=== PATIENT | female | born 1945 | race Caucasian/White ===

== ENCOUNTER → 2016-09-10 | Outpatient (CLI) | payer MEDICARE ==
--- NOTE | 2016-09-10 14:00 | BD ---
EXAMINATION TYPE: MG DEXA axial skeleton. DATE OF EXAM: 09/10/2016 COMPARISON: NONE CLINICAL HISTORY: Z78.0 POST MENOPAUSAL WITHOUT HRT Height: 64.5 Weight: 154.0 FRAX RISK QUESTIONS: Alcohol (3 or more units per day): no Family History (Parent hip fracture): no Glucocorticoids (More than 3mos): no (Ex: prednisone, prednisolone, methylprednisolone, dexamethasone, and hydrocortisone). History of Fracture in Adulthood: no Secondary Osteoporosis: 1. Type 1 Diabetes: no 2. Hyperthyroidism: no 3. Menopause before 45: no 4. Malnutrition: no 5. Chronic liver disease: no Rheumatoid Arthritis: no Current Tobacco Use: no RISK FACTORS HISTORY OF: Hip Fracture (Right/Left): no Spine Fracture: no History of Wrist Fracture: no Surgery to Spine/Hip(right/left)/Wrist (right/left): no Family History of Osteoporosis: no Active: yes Diet low in dairy products/other sources of calcium: no Postmenopausal woman: age 51 Lost more than 2 inches in height since high school: no Frequent falls: no Adrenal Insufficiency: no MEDICATIONS: Crestor, aspirin, Nexium Additional History: EXAM MEASUREMENTS: Bone mineral densitometry was performed using the [employer] System. Bone mineral density as measured about the Lumbar spine is: ----- L1-L4(G/cm2): 1.255 T Score Values are as follows: ----- L2: 0.1 ----- L3: 1.0 ----- L4: 1.3 ----- L1-L4: 0.6 Bone mineral density baseline here Bone mineral density about the R hip (g/cm2): 0.869 Bone mineral density about the L hip (g/cm2): 0.832 T Score values are as follows: -----R Neck: -1.2 -----L Neck: -1.5 -----R Total: -0.9 -----L Total: -0.8 Bone mineral density baseline here IMPRESSION: No evidence for osteoporosis or osteopenia at this time. NOTE: T-SCORE=SD OF THE YOUNG ADULT MEAN.
== END | disposition home or self-care (01) ==
LOC: RADBDWWP 12:35
PROVIDERS: ATTEND Internal Medicine
DX: Z78.0 Asymptomatic menopausal state (principal)
CPT/HCPCS: 77080

== ENCOUNTER → 2016-10-16 | Day surgery (SDC) | payer MEDICARE ==
[2016-10-13 18:05] VITALS: BMI 26.1
[~2016-10-16] MED LIST: ALPRAZolam 0.25 MG TAB PO PRN; ALPRAZolam 0.5 MG TAB PO PRN; ASPIRIN 325 MG TAB PO STA; ATORVASTATIN 80 MG TAB PO STA; IOHEXOL 350 MG/ML 125ML BOTTLE INJ ONE; ISOSORBIDE MONONITRATE ER 30 MG TAB.ER.24H PO SCH; LIDOCAINE 2% INJ 20 MG/ML SQ ONE; MIDAZOLAM 2 MG/2 ML VIAL IV ONE; MIDAZOLAM 2 MG/2 ML VIAL ONE; NITROGLYCERIN SL TABS 0.4 MG TAB SUBLINGUAL PRN; RX INFO: IV CONTRAST WAS GIVEN 1 EACH MISC MISCELLANE PRN; SODIUM CHLORIDE 0.9% 1,000 ML IV ONE; SODIUM CHLORIDE 0.9% 1,000 ML IV SCH; SODIUM CHLORIDE 0.9% 1,000 ML in EMPTY BAG 1 BAG IV ONE; fentaNYL (PF) 50 MCG/ML 2 ML AMP IV ONE; fentaNYL (PF) 50 MCG/ML 2 ML AMP ONE
[2016-10-16 07:14] VITALS: RESP 16
--- NOTE | 2016-10-16 08:42 | PCN ---
PROCEDURE PERFORMED: Cardiac cath INDICATIONS: Unstable angina. The patient has known coronary artery disease status prior angioplasty of the right coronary artery who presented to me with recurrent episodes of chest pain. Due to this, she was advised to undergo cardiac catheterization to definitely rule out ischemic heart disease. The patient received moderate conscious sedation. Total sedation time was 15 minutes. PROCEDURE NOTE: After obtaining informed consent left heart catheterization, coronary angiogram are performed via the right femoral artery using standard Celsa catheters. The patient tolerated the procedure well without any immediate complications. A femoral angiogram was performed and Angio-Seal deployed for hemostasis. FINDINGS: HEMODYNAMICS: Left ventricular end diastolic pressure is 12 to 14 mm. There is no significant gradient across the aortic valve. LEFT VENTRICULOGRAM: Left ventriculogram was not performed. ANGIOGRAPHIC DATA: LEFT MAIN CORONARY ARTERY: Left main coronary is a normal sized vessel and is free of stenosis, divides into left anterior descending coronary artery and circumflex coronary artery. CIRCUMFLEX CORONARY ARTERY: Circumflex coronary artery is a nondominant vessel and is free of significant stenosis. LEFT ANTERIOR DESCENDING CORONARY ARTERY: LAD gives off fair caliber diagonal branches which is free of significant stenosis. The LAD shows 40% atherosclerotic plaque right at the origin of the diagonal branch. RIGHT CORONARY ARTERY: Right coronary artery is a large dominant vessel and the previously stented segment within the right coronary artery appears patent. CONCLUSIONS: Patent stent within the right coronary artery. 40% stenosis involving the mid left anterior descending coronary artery right at the origin of a diagonal branch. PLAN: I reviewed angiographic data with the patient and her and advised them on continued medical therapy with aspirin, statins and I am going to add nitrates in the form of Imdur 30 mg daily. The patient's symptoms are very atypical and she does not have significant focal stenotic lesions. If necessary, down the road, if the patient has progressive symptoms we may consider a stress imaging study to see if there is ischemia in the LAD distribution. If there is, we may consider angioplasty of the LAD. CHAYITO
[2016-10-16 10:26] VITALS: PULSE 55
[2016-10-16 13:06] VITALS: TEMP 98
[2016-10-16 13:07] VITALS: BP 124/56
== END ==
LOC: CATHCVL 06:33
PROVIDERS: ATTEND Internal Medicine Cardiovascular Disease
DX: I25.110 Atherosclerotic heart disease of native coronary artery with unstable angina pectoris (principal); Z82.49 Family history of ischemic heart disease and other diseases of the circulatory system; E78.5 Hyperlipidemia, unspecified; Z79.82 Long term (current) use of aspirin; Z79.899 Other long term (current) drug therapy; Z88.5 Allergy status to narcotic agent; Z88.0 Allergy status to penicillin; Z88.8 Allergy status to other drugs, medicaments and biological substances
CPT/HCPCS: 93458; 99152; C1760; C1894; C1769; J2001; J2250; J3010; Q9967

== ENCOUNTER → 2016-11-13 | Outpatient (CLI) | payer MEDICARE ==
[2016-11-13 11:23] LABS: ALT 28 U/L (9-52); AST 26 U/L (14-36); Alkaline Phosphatase 84 U/L (38-126); Anion Gap 10 mmol/L; Blood Urea Nitrogen 17 mg/dL (7-17); Calcium 9.9 mg/dL (8.4-10.2); Carbon Dioxide 27 mmol/L (22-30); Chloride 108 mmol/L (98-107); Glucose 99 mg/dL (74-99); Non-African American GFR(MDRD) >60 (>60 ml/min/1.73 sqM); Potassium 4.9 mmol/L (3.5-5.1); Sodium 145 mmol/L (137-145); Total Bilirubin 0.3 mg/dL (0.2-1.3); Total Protein 6.9 g/dL (6.3-8.2)
--- NOTE | 2016-11-13 11:56 | CT ---
EXAMINATION TYPE: CT angio chest DATE OF EXAM: 11/13/2016 COMPARISON: NONE HISTORY: Patient complains of difficulty breathing and mid chest pain. CT DLP: 171.6 mGycm. Automated Exposure Control for Dose Reduction was Utilized. CONTRAST: CTA scan of the thorax is performed with IV Contrast, patient injected with 100 mL of Omnipaque 350, pulmonary embolism protocol. MIP Images are created on CT scanner and reviewed. FINDINGS: LUNGS: There is reticulation in the periphery of both lungs suggesting mild diffuse interstitial gloria a. Dependent atelectasis both lower lobes is present. No concerning greater than 5 mm noncalcified p arenchymal nodule or mass is identified. A few micronodules right midlung are seen measuring 3 mm or smaller in size lateral aspect best on MIP images . There is no pleural effusion or pneumothorax seen . The tracheobronchial tree is patent. MEDIASTINUM: There is suboptimal bolus with equal contrast seen in right and left heart systems and h eterogeneity present. There is no large central pulmonary embolism, smaller segmental and subsegmenta l PE is not felt present though not completely excluded by this exam. There are no greater than 1 cm hilar or mediastinal lymph nodes. No significant pericardial effusion is seen. Heart size is mildl y enlarged. There is suspected coronary stent in the proximal RCA seen best coronal image 32. OTHER: There is moderate multilevel spurring in the thoracic spine. Visualized liver is low dense sug gesting fatty infiltration. IMPRESSION: 1. Suboptimal study without convincing CT evidence for pulmonary embolism. 2. Mild cardiomegaly with suspected mild interstitial edema bilaterally, clinical and lab BNP correla tion for mild CHF exacerbation advised.
[2016-11-19 06:08] LABS: Mycoplasma IgG Antibody (EIA) 0.94 INDEX (<=0.90); Mycoplasma IgM Antibody 0.45 INDEX (<=0.90)
== END | disposition home or self-care (01) ==
LOC: RADCTMAIN 10:28
PROVIDERS: ATTEND Family Medicine
DX: I51.7 Cardiomegaly (principal); R79.1 Abnormal coagulation profile; R06.00 Dyspnea, unspecified
CPT/HCPCS: 86738 ×2; 80053; 71275; Q9967

== ENCOUNTER 2019-11-07 11:38 | Observation (INO) | payer MEDICARE ==
[2019-11-07] MEDS ORDERED: NITROGLYCERIN OINT 1 INCH/GM PACKET TOPICAL STA (11:56)
[2019-11-07] MEDS ORDERED: ASPIRIN 81 MG PO STA (11:56)
--- NOTE | 2019-11-07 12:01 | ED ---
General Adult HPI - General Chief complaint: Chest Pain Stated complaint: Chest pain Time Seen by Provider: 11/07/19 11:40 Source: patient, RN notes reviewed, old records reviewed Mode of arrival: wheelchair Limitations: no limitations - History of Present Illness Initial comments: This is a 73-year-old female with past medical history significant for cardiac stent and high cholesterol. Patient states last 3 days she's been having intermittent chest pain which lasts typically for a few hours it's in the center of her chest that she describes it as a pressure. Patient denies radiation of pain. Patient denies any associated diaphoretic episodes. Patient states she does feel little bit more short of breath than normal. Patient states that in t he past little Advil helps but today she took it it seemed to make the pain worse. Patient states she had a cardiac catheterization about 3 years ago and everything was fine and she had a stress test about 2 years ago. Patient denies any recent fever chills or cough. Patient denies any swelling to the legs or calf tenderness. - Related Data Home Medications Medication Instructions Recorded Confirmed Aspirin [Adult Low Dose Aspirin EC] 81 mg PO HS 10/13/16 11/07/19 Esomeprazole Magnesium [NexIUM 20 mg PO BID 10/13/16 11/07/19 24Hr] Multivit-Min/FA/Lycopen/Lutein 1 tab PO DAILY 10/13/16 11/07/19 [Centrum Silver Tablet] Albuterol Inhaler [Ventolin Hfa 2 puff INHALATION RT-QID PRN 11/07/19 11/07/19 Inhaler] Atorvastatin Calcium [Lipitor] 20 mg PO HS 11/07/19 11/07/19 Cholecalciferol [Vitamin D3 (25 10,000 unit PO CLEMENS 11/07/19 11/07/19 Mcg = 1000 Iu)] Famotidine [Pepcid] 40 mg PO HS 11/07/19 11/07/19 Glucosamine/Chondr Clemens A Sod [Osteo 1 tab PO DAILY 11/07/19 11/07/19 Bi-Flex Caplet] Naproxen Sodium [Aleve] 440 mg PO Q8H PRN 11/07/19 11/07/19 valACYclovir HCL 500 mg PO DAILY 11/07/19 11/07/19 Allergies Allergy/AdvReac Type Severity Reaction Status Date / Time adhesive Allergy Rash/Hives, Verified 11/07/19 13:00 Itching, burning skin morphine Allergy Nausea & Verified 11/07/19 13:00 Vomiting Penicillins Allergy Itching, Verified 11/07/19 13:00 hives Review of Systems ROS Statement: Those systems with pertinent positive or pertinent negative responses have been documented in the HPI. ROS Other: All systems not noted in ROS Statement are negative. Past Medical History Past Medical History: Coronary Artery Disease (CAD), Cancer, Chest Pain / Angina, GERD/Reflux, GI Bleed, Osteoarthritis (OA) Additional Past Medical History / Comment(s): HEAVINESS IN CHEST, ARMS GO NUMB BRIEFLY ON OCC. HX SKIN CA NOSE. VARICOSE VEIN. History of Any Multi-Drug Resistant Organisms: None Reported Past Surgical History: Heart Catheterization With Stent, Hernia Repair Additional Past Surgical History / Comment(s): COLONOSCOPY, EGD. EXC DILCIA CATARACTS. Past Anesthesia/Blood Transfusion Reactions: No Reported Reaction, Family History of Problems w/ Anesthesia, Motion Sickness Additional Past Anesthesia/Blood Transfusion Reaction / Comment(s): MOTHER HAS PONV. Date of Last Stent Placement:: 2008 Past Psychological History: Depression Past Alcohol Use History: Occasional Past Drug Use History: None Reported - Past Family History Mother Family Medical History: Cancer Father Family Medical History: CVA/TIA General Exam - General Exam Comments Initial Comments: GENERAL: Patient is well-developed and well-nourished. Patient is nontoxic and well- hydrated and is in mild distress. ENT: Neck is soft and supple. No significant lymphadenopathy is noted. Oropharynx is clear. Moist mucous membranes. Neck has full range of motion without eliciting any pain. EYES: The sclera were anicteric and conjunctiva were pink and moist. Extraocular movements were intact and pupils were equal round and reactive to light. Eyelids were unremarkable. PULMONARY: Unlabored respirations. Good breath sounds bilaterally. No audible rales rhonchi or wheezing was noted. CARDIOVASCULAR: There is a regular rate and rhythm without any murmurs gallops or rubs. ABDOMEN: Soft and nontender with normal bowel sounds. SKIN: Skin is clear with no lesions or rashes and otherwise unremarkable. NEUROLOGIC: Patient is alert and oriented x3. Cranial nerves II through XII are grossly intact. Motor and sensory are also intact. Normal speech, volume and content. Symmetrical smile. MUSCULOSKELETAL: Normal extremities with adequate strength and full range of motion. LYMPHATICS: No significant lymphadenopathy is noted PSYCHIATRIC: Normal psychiatric evaluation. Limitations: no limitations Course Vital Signs 11/07/19 11/07/19 11:41 13:15 Temperature 99 F 98.5 F Pulse Rate 73 62 Respiratory 18 20 Rate Blood Pressure 169/77 139/69 O2 Sat by Pulse 96 98 Oximetry Medical Decision Making - Medical Decision Making EKG shows normal sinus rhythm at 70 bpm NM interval is 160 QRS is under QT intervals 44 QTC is 436. EKG shows no ST segment elevation or depression. Chest x-ray showed no acute abnormality. Nitropaste seem to take with the patient's pain. I started the patient on heparin for the unstable angina. I spoke some physicians he agreed to admit the patient admitted the patient wrote admitting orders. - Lab Data Result diagrams: 11/07/19 11:53 11/07/19 11:53 Lab Results 11/07/19 11/07/19 11/07/19 Range/Units 11:53 11:53 11:53 WBC 7.2 (3.8-10.6) k/uL RBC 4.15 (3.80-5.40) m/uL Hgb 12.1 (11.4-16.0) gm/dL Hct 38.0 (34.0-46.0) % MCV 91.7 (80.0-100.0) fL MCH 29.2 (25.0-35.0) pg MCHC 31.8 (31.0-37.0) g/dL RDW 13.3 (11.5-15.5) % Plt Count 231 (150-450) k/uL Neutrophils % 65 % Lymphocytes % 22 % Monocytes % 7 % Eosinophils % 3 % Basophils % 1 % Neutrophils # 4.7 (1.3-7.7) k/uL Lymphocytes # 1.6 (1.0-4.8) k/uL Monocytes # 0.5 (0-1.0) k/uL Eosinophils # 0.2 (0-0.7) k/uL Basophils # 0.1 (0-0.2) k/uL PT 9.9 (9.0-12.0) sec INR 0.9 (<1.2) APTT 24.2 (22.0-30.0) sec D-Dimer 0.31 (<0.60) mg/L FEU Sodium 139 (137-145) mmol/L Potassium 4.2 (3.5-5.1) mmol/L Chloride 106 (98-107) mmol/L Carbon Dioxide 27 (22-30) mmol/L Anion Gap 6 mmol/L BUN 15 (7-17) mg/dL Creatinine 0.69 (0.52-1.04) mg/dL Est GFR (CKD-EPI)AfAm >90 (>60 ml/min/1.73 sqM) Est GFR (CKD-EPI)NonAf 86 (>60 ml/min/1.73 sqM) Glucose 110 H (74-99) mg/dL Calcium 9.3 (8.4-10.2) mg/dL Magnesium 1.7 (1.6-2.3) mg/dL Total Bilirubin 0.4 (0.2-1.3) mg/dL AST 25 (14-36) U/L ALT 10 (4-34) U/L Alkaline Phosphatase 79 (38-126) U/L Troponin I (0.000-0.034) ng/mL Total Protein 6.7 (6.3-8.2) g/dL Albumin 4.0 (3.5-5.0) g/dL Lipase 63 (23-300) U/L 11/07/19 Range/Units 11:53 WBC (3.8-10.6) k/uL RBC (3.80-5.40) m/uL Hgb (11.4-16.0) gm/dL Hct (34.0-46.0) % MCV (80.0-100.0) fL MCH (25.0-35.0) pg MCHC (31.0-37.0) g/dL RDW (11.5-15.5) % Plt Count (150-450) k/uL Neutrophils % % Lymphocytes % % Monocytes % % Eosinophils % % Basophils % % Neutrophils # (1.3-7.7) k/uL Lymphocytes # (1.0-4.8) k/uL Monocytes # (0-1.0) k/uL Eosinophils # (0-0.7) k/uL Basophils # (0-0.2) k/uL PT (9.0-12.0) sec INR (<1.2) APTT (22.0-30.0) sec D-Dimer (<0.60) mg/L FEU Sodium (137-145) mmol/L Potassium (3.5-5.1) mmol/L Chloride (98-107) mmol/L Carbon Dioxide (22-30) mmol/L Anion Gap mmol/L BUN (7-17) mg/dL Creatinine (0.52-1.04) mg/dL Est GFR (CKD-EPI)AfAm (>60 ml/min/1.73 sqM) Est GFR (CKD-EPI)NonAf (>60 ml/min/1.73 sqM) Glucose (74-99) mg/dL Calcium (8.4-10.2) mg/dL Magnesium (1.6-2.3) mg/dL Total Bilirubin (0.2-1.3) mg/dL AST (14-36) U/L ALT (4-34) U/L Alkaline Phosphatase (38-126) U/L Troponin I <0.012 (0.000-0.034) ng/mL Total Protein (6.3-8.2) g/dL Albumin (3.5-5.0) g/dL Lipase (23-300) U/L Critical Care Time Critical Care Time: Yes Total Critical Care Time: 35 Disposition Clinical Impression: Unstable angina pectoris Disposition: ADMITTED IP TO THIS HOSP Referrals: Ruddy Vu MD [Primary Care Provider] - 1-2 days Time of Disposition: 13:24
[2019-11-07 12:16] LABS: Basophils # (A) 0.1 k/uL (0-0.2); Basophils % (A) 1 %; Eosinophils # (A) 0.2 k/uL (0-0.7); Eosinophils % (A) 3 %; HGB 12.1 gm/dL (11.4-16.0); Lymphocytes # (A) 1.6 k/uL (1.0-4.8); Lymphocytes % (A) 22 %; MCH 29.2 pg (25.0-35.0); MCHC 31.8 g/dL (31.0-37.0); MCV 91.7 fL (80.0-100.0); Mean Platelet Volume 7.5; Monocytes # (A) 0.5 k/uL (0-1.0); Monocytes % (A) 7 %; Neutrophils # (A) 4.7 k/uL (1.3-7.7); Neutrophils % (A) 65 %; Platelet Count 231 k/uL (150-450); RBC 4.15 m/uL (3.80-5.40); RDW 13.3 % (11.5-15.5); WBC 7.2 k/uL (3.8-10.6)
[2019-11-07 12:26] LABS: ALT 10 U/L (4-34); AST 25 U/L (14-36); African American GFR (CKD) >90 (>60 ml/min/1.73 sqM); Alkaline Phosphatase 79 U/L (38-126); Anion Gap 6 mmol/L; Blood Urea Nitrogen 15 mg/dL (7-17); Calcium 9.3 mg/dL (8.4-10.2); Carbon Dioxide 27 mmol/L (22-30); Chloride 106 mmol/L (98-107); Glucose 110 mg/dL (74-99); Magnesium 1.7 mg/dL (1.6-2.3); Non-African American GFR(CKD) 86 (>60 ml/min/1.73 sqM); Potassium 4.2 mmol/L (3.5-5.1); Sodium 139 mmol/L (137-145); Total Bilirubin 0.4 mg/dL (0.2-1.3); Total Protein 6.7 g/dL (6.3-8.2)
[2019-11-07 12:32] LABS: D-Dimer 0.31 mg/L FEU (<0.60); INR 0.9 (<1.2); Partial Thromboplastin Time 24.2 sec (22.0-30.0); Prothrombin Time 9.9 sec (9.0-12.0)
--- NOTE | 2019-11-07 12:35 | XR ---
EXAMINATION TYPE: XR chest 2V DATE OF EXAM: 11/07/2019 COMPARISON: CTA chest November 13, 2016 HISTORY: Cough for 1.5 years with pain. TECHNIQUE: Frontal and lateral views of the chest are obtained. FINDINGS: There is peripheral reticular interstitial fibrotic changes bilaterally greater in the low er lungs with likely some interval progression from 2017 CT. No new suspicious focal airspace opacity , pleural effusion, or pneumothorax clearly seen bilaterally. The cardiac silhouette size remains upp er limits of normal. The osseous structures are intact. Contrast from recent swallow study noted in colonic loops in the visualized abdomen IMPRESSION: Peripheral bilateral lower lungs reticular fibrotic changes. Correlate for underlying IP F. No new focal infiltrate.
[2019-11-07] MEDS ORDERED: HEPARIN SODIUM,PORCINE 5,000 UNIT/ML 1 ML VIAL IV ONE (13:14)
[2019-11-07] MEDS ORDERED: HEPARIN SOD,PORK IN 0.45% NACL 25,000 UNIT in 0.45% NACL 1 250ML.BAG IV SCH (13:15)
[2019-11-07] MEDS ORDERED: NITROGLYCERIN SL TABS 0.4 MG TAB SUBLINGUAL PRN (13:26)
[2019-11-07] MEDS ORDERED: ALBUTEROL NEBULIZED 2.5 MG/3 ML INHALATION PRN (14:50)
--- NOTE | 2019-11-07 16:14 | P.HPIM ---
History of Present Illness H&P Date: 11/07/19 Chief Complaint: Chest pain This is a 73-year-old female with past medical history noted below significant for coronary artery disease with prior stent placement who presented to the emergency room with chest pain. Patient said that her pain started 3 days ago and has been intermittent in nature. It is nonexertional. She described her pain as pressure-like mostly in the middle of her chest with no radiation. At worst, the pain was 5 out of 10 in severity. She denies any shortness of breath. She said that she has been having problems with dry cough for a year and a half that she attributed to underlying ALLERGIES. Patient denies any dizziness or lightheadedness. She reported that she has been taking Advil with good resolution of her pain but today the pain was worse than usual so she was concerned and decided to come to the emergency room for further evaluation. Patient was seen in the ER and 12-lead EKG showed no acute ischemic changes. Initial troponin was negative. She is chest pain-free at this time. She will be placed on observation Review of Systems Review of system: 14 points review of systems were obtained and were negative except to what were mentioned in the HPI. Past Medical History Past Medical History: Coronary Artery Disease (CAD), Cancer, Chest Pain / Angina, GERD/Reflux, Osteoarthritis (OA), Respiratory Disorder Additional Past Medical History / Comment(s): Basal cell skin cancer removed from nose, slight pulmonary fibrosis, hiatal hernia, benign stomach polyp, anemia, occasional back pain, seasonal allergies, UTIs History of Any Multi-Drug Resistant Organisms: None Reported Past Surgical History: Heart Catheterization, Heart Catheterization With Stent, Hernia Repair Additional Past Surgical History / Comment(s): PCI with stent, L side upper abdominal hernia repair, skin cancer removed from nose with skin graft, EGD, colonoscopy, bilateral cataract removals/lens implants. Past Anesthesia/Blood Transfusion Reactions: No Reported Reaction, Family History of Problems w/ Anesthesia, Motion Sickness Additional Past Anesthesia/Blood Transfusion Reaction / Comment(s): MOTHER HAS PONV. Date of Last Stent Placement:: 2008 Smoking Status: Never smoker - Past Family History Mother Family Medical History: Cancer Additional Family Medical History / Comment(s): Breast cancer. Father Family Medical History: CVA/TIA Medications and Allergies Home Medications Medication Instructions Recorded Confirmed Type Aspirin [Adult Low Dose Aspirin EC] 81 mg PO HS 10/13/16 11/07/19 History Esomeprazole Magnesium [NexIUM 20 mg PO BID 10/13/16 11/07/19 History 24Hr] Multivit-Min/FA/Lycopen/Lutein 1 tab PO DAILY 10/13/16 11/07/19 History [Centrum Silver Tablet] Albuterol Inhaler [Ventolin Hfa 2 puff INHALATION RT-QID PRN 11/07/19 11/07/19 History Inhaler] Atorvastatin Calcium [Lipitor] 20 mg PO HS 11/07/19 11/07/19 History Cholecalciferol [Vitamin D3 (25 10,000 unit PO CLEMENS 11/07/19 11/07/19 History Mcg = 1000 Iu)] Famotidine [Pepcid] 40 mg PO HS 11/07/19 11/07/19 History Glucosamine/Chondr Clemens A Sod [Osteo 1 tab PO DAILY 11/07/19 11/07/19 History Bi-Flex Caplet] Naproxen Sodium [Aleve] 440 mg PO Q8H PRN 11/07/19 11/07/19 History valACYclovir HCL 500 mg PO DAILY 11/07/19 11/07/19 History Allergies Allergy/AdvReac Type Severity Reaction Status Date / Time adhesive Allergy Rash/Hives, Verified 11/07/19 13:00 Itching, burning skin morphine Allergy Nausea & Verified 11/07/19 13:00 Vomiting Penicillins Allergy Itching, Verified 11/07/19 13:00 hives Physical Exam Vitals: Vital Signs Temp Pulse Resp BP Pulse Ox 11/07/19 13:15 98.5 F 62 20 139/69 98 11/07/19 11:41 99 F 73 18 169/77 96 Intake and Output 11/07/19 11/07/19 11/07/19 06:59 14:59 22:59 Other: Weight 68.039 kg 68.039 kg General: The patient is awake and alert, in no distress Eye: there is normal conjunctiva bilaterally. Neck: The neck is supple, there is no JVD. Cardiovascular: Normal S1-S2, no S3-S4, no murmurs. Respiratory: Lungs clear to auscultation bilaterally Gastrointestinal: Abdomen is soft, nontender Musculoskeletal: There is no pedal edema. Neurological:. Speech is normal. Skin: Skin is warm and dry Results CBC & Chem 7: 11/07/19 11:53 11/07/19 11:53 Labs: Abnormal Lab Results - Last 24 Hours (Table) 11/07/19 Range/Units 11:53 Glucose 110 H (74-99) mg/dL Thrombosis Risk Factor Assmnt - Choose All That Apply Any of the Below Risk Factors Present?: Yes Other Risk Factors: Yes Each Risk Factor Represents 2 Points: Age 61-74 years, Malignancy Other congenital or acquired thrombophilia - If yes, enter type in comment: No Thrombosis Risk Factor Assessment Total Risk Factor Score: 4 Thrombosis Risk Factor Assessment Level: Moderate Risk Assessment and Plan Assessment: 1. chest pain, mostly atypical in nature. Twelve-lead EKG in the ER showed no acute ischemic changes. Initial troponin is normal. We'll continue to trend troponin. Continue telemetry monitoring. Cardiology consulted by ED provider. Discontinue IV heparin as patient does not meet criteria for ACS. Continue to monitor clinical condition. 2. Hyperlipidemia, maintained on Lipitor. Fasting lipid profile in the morning 3. DVT prophylaxis subcu heparin
[2019-11-07] MEDS: NITROGLYCERIN OINT 1 INCH/GM PACKET TOPICAL SCH (18:19)
[2019-11-07] MEDS: ACETAMINOPHEN TAB 325 MG TAB PO PRN (20:22)
[2019-11-07] MEDS: HEPARIN SODIUM,PORCINE 5,000 UNIT/ML 1 ML VIAL SQ SCH (20:23)
[2019-11-07] MEDS ORDERED: ATORVASTATIN 20 MG TAB PO SCH (21:00)
[2019-11-07] MEDS ORDERED: FAMOTIDINE 20 MG TAB PO SCH (21:00)
[2019-11-08 03:42] VITALS: RESP 16
[2019-11-08] MEDS: NITROGLYCERIN OINT 1 INCH/GM PACKET TOPICAL SCH ×2 (06:25→06:26)
[2019-11-08] MEDS: ACETAMINOPHEN TAB 325 MG TAB PO PRN (06:28)
[2019-11-08 06:40] LABS: Cholesterol 147 mg/dL (<200); HDL Cholesterol 57 mg/dL (40-60); LDL Cholesterol,Calculated 70 mg/dL (0-99); Triglycerides 100 mg/dL (<150)
[2019-11-08] MEDS ORDERED: PANTOPRAZOLE 40 MG TABLET PO SCH (07:30)
[2019-11-08] MEDS ORDERED: DOBUTamine DRIP for NUC MED 500 MG in DEXTROSE/WATER 1 250ML.BAG IV ONE (08:15)
[2019-11-08] MEDS ORDERED: ASPIRIN 325 MG TAB PO SCH (09:00)
[2019-11-08] MEDS ORDERED: valACYclovir 500 MG TAB PO SCH (09:00)
[2019-11-08 09:05] VITALS: BP 146/81; PULSE 73; TEMP 98
[2019-11-08] MEDS: HEPARIN SODIUM,PORCINE 5,000 UNIT/ML 1 ML VIAL SQ SCH (09:26)
--- NOTE | 2019-11-08 11:30 | P.DS ---
Providers Date of admission: 11/07/19 13:26 Expected date of discharge: 11/08/19 Attending physician: Dc Smith Consults: 11/07/19 13:26 Consult Physician Urgent Consulting Provider: [facility] Consult Reason/Comments: Unstable angina Do you want consulting provider notified?: Yes Primary care physician: Ruddy Vu [facility] Course: This is a 73-year-old female who presented to the emergency room with chest pain. Patient was evaluated and placed on observation for further management of her medical problems noted below. 1. chest pain, mostly atypical in nature. Twelve-lead EKG in the ER showed no acute ischemic changes. Serial troponin negative 3 sets. Patient was seen and evaluated by cardiology. She underwent stress echocardiogram that was reported negative awaiting final report. Patient was Q by cardiology for discharge. 2. Hyperlipidemia, maintained on Lipitor. Fasting lipid profile within acceptable range 3. History of coronary artery disease with prior stent placement, continue medical management Patient will be discharged home in a stable condition. For further details about this hospitalization please refer to the electronic chart. Patient Condition at Discharge: Fair Plan - Discharge Summary Discharge Rx Participant: No New Discharge Prescriptions: Continue Esomeprazole Magnesium [NexIUM 24Hr] 20 mg PO BID Aspirin [Adult Low Dose Aspirin EC] 81 mg PO HS Multivit-Min/FA/Lycopen/Lutein [Centrum Silver Tablet] 1 tab PO DAILY valACYclovir HCL 500 mg PO DAILY Famotidine [Pepcid] 40 mg PO HS Atorvastatin Calcium [Lipitor] 20 mg PO HS Naproxen Sodium [Aleve] 440 mg PO Q8H PRN PRN Reason: Pain Glucosamine/Chondr Bonner A Sod [Osteo Bi-Flex Caplet] 1 tab PO DAILY Albuterol Inhaler [Ventolin Hfa Inhaler] 2 puff INHALATION RT-QID PRN PRN Reason: Shortness Of Breath Cholecalciferol [Vitamin D3 (25 Mcg = 1000 Iu)] 10,000 unit PO BONNER Discharge Medication List Aspirin [Adult Low Dose Aspirin EC] 81 mg PO HS 10/13/16 [History] Esomeprazole Magnesium [NexIUM 24Hr] 20 mg PO BID 10/13/16 [History] Multivit-Min/FA/Lycopen/Lutein [Centrum Silver Tablet] 1 tab PO DAILY 10/13/16 [History] Albuterol Inhaler [Ventolin Hfa Inhaler] 2 puff INHALATION RT-QID PRN 11/07/19 [History] Atorvastatin Calcium [Lipitor] 20 mg PO HS 11/07/19 [History] Cholecalciferol [Vitamin D3 (25 Mcg = 1000 Iu)] 10,000 unit PO BONNER 11/07/19 [History] Famotidine [Pepcid] 40 mg PO HS 11/07/19 [History] Glucosamine/Chondr Bonner A Sod [Osteo Bi-Flex Caplet] 1 tab PO DAILY 11/07/19 [History] Naproxen Sodium [Aleve] 440 mg PO Q8H PRN 11/07/19 [History] valACYclovir HCL 500 mg PO DAILY 11/07/19 [History] Follow up Appointment(s)/Referral(s): Ruddy Vu MD [Primary Care Provider] - 1-2 days Mina Gorman MD [STAFF PHYSICIAN] - 2 Weeks Discharge Disposition: HOME SELF-CARE
--- NOTE | 2019-11-08 11:35 | ECHOF ---
Referral Reason:chest pain MEASUREMENTS -------- HEIGHT: 162.6 cm WEIGHT: 68.0 kg BP: 146/81 RVIDd: 2.9 cm (< 3.3) IVSd: 1.5 cm (0.6 - 1.1) LVIDd: 3.7 cm (3.9 - 5.3) LVPWd: 1.5 cm (0.6 - 1.1) IVSs: 1.9 cm LVIDs: 2.6 cm LVPWs: 1.8 cm LAESV Index (A-L): 23.55 ml/m Ao Diam: 2.8 cm (2.0 - 3.7) AV Cusp: 1.9 cm (1.5 - 2.6) MV EXCURSION: 18.649 mm (> 18.000) MV EF SLOPE: 66 mm/s (70 - 150) EPSS: 0.4 cm MV E Balwinder: 0.58 m/s MV DecT: 244 ms MV A Balwinder: 0.94 m/s MV E/A Ratio: 0.62 RAP: 5.00 mmHg RVSP: 30.94 mmHg FINDINGS -------- Sinus rhythm. This was a technically adequate study. The left ventricular size is normal. There is moderate concentric left ventricular hypertrophy. O verall left ventricular systolic function is normal with, an EF between 55 - 60 %. The diastolic fi lling pattern is normal for the age of the patient 8.69. The right ventricle is normal in size. Normal LA size by volume 22+/-6 ml/m2. The right atrial size is normal. Interatrial and interventricular septum intact. The aortic valve is trileaflet and appears structurally normal. There is no evidence of aortic regu rgitation. There is no evidence of aortic stenosis. There is trace mitral regurgitation. Mild tricuspid regurgitation present. There is no evidence of pulmonary hypertension. The right v entricular systolic pressure, as measured by Doppler, is 30.94mmHg. There is no pulmonic regurgitation present. The aortic root size is normal. IVC Not well visulized. There is no pericardial effusion. CONCLUSIONS -------- 1. The left ventricular size is normal. 2. There is moderate concentric left ventricular hypertrophy. 3. Overall left ventricular systolic function is normal with, an EF between 55 - 60 %. 4. The diastolic filling pattern is normal for the age of the patient 8.69 5. Mild tricuspid regurgitation present. HEAD OF LOSS PREVENTION: Dania Colorado RDCS
--- NOTE | 2019-11-08 13:47 | P.CRDCN ---
History of Present Illness History of present illness: HISTORY OF PRESENTING ILLNESS This is a pleasant 73-year-old female past medical history significant for artery disease status post PCI of the RCA with 40% disease of the mid LAD, basal cell skin cancer and pulmonary fibrosis. She follows in the office with Dr. Gorman. We have been asked to see in consultation for chest pain. She is describing a tightness around the chest for the last 1-2 weeks. felt like her bra was too tight. She bought bigger bras and the symptoms did not improve. Over the weekend she noticed heaviness in the chest in the mid-sternal region that was relieved initially by advil. However yesterday she again had heaviness that was not resolved with advil. She is seen and examined sitting up in no acute distress. She has no further symptoms of chest discomfort. She denies associated shortness of breath, dizziness, palpitations, nausea, vomiting or diaphoresis. DIAGNOSTICS EKG reveals sinus mechanism no acute ischemic changes. Chest xray peripheral bilateral lower lobe reticular fibrotic changes. Laboratory reviewed, ABC unremarkable, d-dimer 0.31, sodium 139, potassium 4.2, creatinine 0.69, magnesium 1.7, cardiac enzymes negative 3, LDL 70 and HDL 57. Current cardiac medications include aspirin 81 mg daily and atorvastatin 20 mg at bedtime. REVIEW OF SYSTEMS At the time of my exam: CONSTITUTIONAL: Denies fever or chills. CARDIOVASCULAR: Denies chest pain, shortness of breath, orthopnea, PND or palpitations. RESPIRATORY: Denies cough. GASTROINTESTINAL: Denies abdominal pain, diarrhea, constipation, nausea or vomiting. MUSCULOSKELETAL: Denies myalgias. NEUROLOGIC: Denies numbness, tingling or weakness. ENDOCRINE: Denies fatigue, weight change, polydipsia or polyurina. GENITOURINARY: Denies burning, hematuria or urgency with micturation. HEMATOLOGIC: Denies history of anemia or bleeding. PHYSICAL EXAMINATION Blood pressure 146/81 heart rate 73 afebrile and maintaining oxygen saturation on room air. CONSTITUTIONAL: No apparent distress. HEENT: Head is normocephalic. Pupils are equal, round. Sclerae anicteric. Mucous membranes of the mouth are moist. No JVD. No carotid bruit. CHEST EXAMINATION: Lungs are clear to auscultation. No chest wall tenderness is noted on palpation or with deep breathing. HEART EXAMINATION: Regular rate and rhythm. S1, S2 heard. No murmurs, gallops or rub. ABDOMEN: Soft, nontender. Positive bowel sounds. EXTREMITIES: 2+ peripheral pulses, no lower extremity edema and no calf tenderness. NEUROLOGIC EXAMINATION: Patient is awake, alert and oriented x3. ASSESSMENT Chest pain, an acute coronary event has been ruled out. History of coronary artery disease status post PCI Dyslipidemia PLAN An acute coronary event has been ruled out. Obtain 2-D echocardiogram and Doppler study to assess cardiac structure and function. Perform stress echocardiogram to assess for stress induced cardiac ischemia. If stress test is normal she may be discharged to follow-up with Dr. Gorman for further outpatient cardiac testing is warranted. Thank you kindly for this consultation. Nurse Practitioner note has been reviewed, I agree with a documented findings and plan of care. Patient was seen and examined. Past Medical History Past Medical History: Coronary Artery Disease (CAD), Cancer, Chest Pain / Angina, GERD/Reflux, Osteoarthritis (OA), Respiratory Disorder Additional Past Medical History / Comment(s): Basal cell skin cancer removed from nose, slight pulmonary fibrosis, hiatal hernia, benign stomach polyp, anemia, occasional back pain, seasonal allergies, UTIs History of Any Multi-Drug Resistant Organisms: None Reported Past Surgical History: Heart Catheterization, Heart Catheterization With Stent, Hernia Repair Additional Past Surgical History / Comment(s): PCI with stent, L side upper abdominal hernia repair, skin cancer removed from nose with skin graft, EGD, colonoscopy, bilateral cataract removals/lens implants. Past Anesthesia/Blood Transfusion Reactions: No Reported Reaction, Family History of Problems w/ Anesthesia, Motion Sickness Additional Past Anesthesia/Blood Transfusion Reaction / Comment(s): MOTHER HAS PONV. Date of Last Stent Placement:: 2008 Smoking Status: Never smoker - Past Family History Mother Family Medical History: Cancer Additional Family Medical History / Comment(s): Breast cancer. Father Family Medical History: CVA/TIA Medications and Allergies Home Medications Medication Instructions Recorded Confirmed Type Aspirin [Adult Low Dose Aspirin EC] 81 mg PO HS 10/13/16 11/07/19 History Esomeprazole Magnesium [NexIUM 20 mg PO BID 10/13/16 11/07/19 History 24Hr] Multivit-Min/FA/Lycopen/Lutein 1 tab PO DAILY 10/13/16 11/07/19 History [Centrum Silver Tablet] Albuterol Inhaler [Ventolin Hfa 2 puff INHALATION RT-QID PRN 11/07/19 11/07/19 History Inhaler] Atorvastatin Calcium [Lipitor] 20 mg PO HS 11/07/19 11/07/19 History Cholecalciferol [Vitamin D3 (25 10,000 unit PO CLEMENS 11/07/19 11/07/19 History Mcg = 1000 Iu)] Famotidine [Pepcid] 40 mg PO HS 11/07/19 11/07/19 History Glucosamine/Chondr Clemens A Sod [Osteo 1 tab PO DAILY 11/07/19 11/07/19 History Bi-Flex Caplet] Naproxen Sodium [Aleve] 440 mg PO Q8H PRN 11/07/19 11/07/19 History valACYclovir HCL 500 mg PO DAILY 11/07/19 11/07/19 History Allergies Allergy/AdvReac Type Severity Reaction Status Date / Time adhesive Allergy Rash/Hives, Verified 11/07/19 13:00 Itching, burning skin morphine Allergy Nausea & Verified 11/07/19 13:00 Vomiting Penicillins Allergy Itching, Verified 11/07/19 13:00 hives Physical Exam Vitals: Vital Signs Temp Pulse Pulse Resp BP BP Pulse Ox 11/08/19 03:00 97.8 F 68 16 123/55 97 11/07/19 21:00 98.0 F 76 18 121/65 97 11/07/19 17:32 98 F 69 16 134/53 97 11/07/19 16:35 98.2 F 67 20 109/60 97 11/07/19 13:15 98.5 F 62 20 139/69 98 11/07/19 11:41 99 F 73 18 169/77 96 Intake and Output 11/07/19 11/08/19 11/08/19 22:59 06:59 14:59 Intake Total 480 Balance 480 Intake: Oral 480 Other: Voiding Method Toilet # Voids 2 Weight 68.039 kg Results 11/07/19 11:53 11/07/19 11:53 Cardiac Enzymes 11/07/19 11/07/19 11/07/19 Range/Units 11:53 11:53 14:51 AST 25 (14-36) U/L Troponin I <0.012 <0.012 (0.000-0.034) ng/mL 11/07/19 Range/Units 18:00 AST (14-36) U/L Troponin I <0.012 (0.000-0.034) ng/mL Coagulation 11/07/19 Range/Units 11:53 PT 9.9 (9.0-12.0) sec APTT 24.2 (22.0-30.0) sec Lipids 11/08/19 Range/Units 06:10 Triglycerides 100 (<150) mg/dL Cholesterol 147 (<200) mg/dL HDL Cholesterol 57 (40-60) mg/dL CBC 11/07/19 Range/Units 11:53 WBC 7.2 (3.8-10.6) k/uL RBC 4.15 (3.80-5.40) m/uL Hgb 12.1 (11.4-16.0) gm/dL Hct 38.0 (34.0-46.0) % Plt Count 231 (150-450) k/uL Comprehensive Metabolic Panel 11/07/19 Range/Units 11:53 Sodium 139 (137-145) mmol/L Potassium 4.2 (3.5-5.1) mmol/L Chloride 106 (98-107) mmol/L Carbon Dioxide 27 (22-30) mmol/L BUN 15 (7-17) mg/dL Creatinine 0.69 (0.52-1.04) mg/dL Glucose 110 H (74-99) mg/dL Calcium 9.3 (8.4-10.2) mg/dL AST 25 (14-36) U/L ALT 10 (4-34) U/L Alkaline Phosphatase 79 (38-126) U/L Total Protein 6.7 (6.3-8.2) g/dL Albumin 4.0 (3.5-5.0) g/dL Current Medications Generic Name Dose Route Start Last Admin Trade Name Freq PRN Reason Stop Dose Admin Acetaminophen 650 mg 11/07/19 19:52 11/08/19 06:28 Tylenol Tab PO 650 mg Q6HR PRN Administration Fever and/ or Pain Albuterol Sulfate 2.5 mg 11/07/19 14:50 Ventolin Nebulized INHALATION RT-QID PRN Shortness Of Breath Aspirin 81 mg 11/08/19 21:00 Aspirin PO HS [facility] Atorvastatin Calcium 20 mg 11/07/19 21:00 11/07/19 20:23 Lipitor PO 20 mg HS OZZIE Administration Cholecalciferol 10,000 unit 11/13/19 09:00 Vitamin D3 (25 Mcg = 1000 Iu) PO CLEMENS OZZIE Famotidine 40 mg 11/07/19 21:00 11/07/19 20:23 Pepcid PO 40 mg HS OZZIE Administration Heparin Sodium (Porcine) 5,000 unit 11/07/19 21:00 11/07/19 20:23 Heparin SQ 5,000 unit Q12HR OZZIE Administration Nitroglycerin 0.4 mg 11/07/19 13:26 Nitrostat SUBLINGUAL Q5M PRN Chest Pain Nitroglycerin 1 inch 11/07/19 18:00 11/08/19 06:26 Nitro-Bid Oint TOPICAL Not Given Q6HR OZZIE Pantoprazole Sodium 40 mg 11/08/19 07:30 11/08/19 06:25 Protonix PO 40 mg AC-BRKFST OZZIE Administration Valacyclovir HCl 500 mg 11/08/19 09:00 Valtrex PO DAILY OZZIE Intake and Output 11/07/19 11/08/19 11/08/19 22:59 06:59 14:59 Intake Total 480 Balance 480 Intake: Oral 480 Other: Voiding Method Toilet # Voids 2 Weight 68.039 kg 11/07/19 11:53 11/07/19 11:53
--- NOTE | 2019-11-08 15:19 | ECHOS ---
STRESS ECHOCARDIOGRAM LUMASON: Vial INDICATIONS: Chest pain. MEDICATIONS: BASELINE HEART RATE: 77 BASELINE BLOOD PRESSURE: 156/83 MAXIMUM HEART RATE: 127 MAXIMUM BLOOD PRESSURE: 196/59 85% MPHR: 124 100% MPHR: 146 METS: 10.1 MAXIMUM STAGE REACHED: III TOTAL EXERCISE TIME: 8:26 CLINICAL INFORMATION: Patient presented with chest discomfort. Normal cardiac enzymes. Baseline heart rate 77 beats per minute. Baseline blood pressure 156/83 mmHg. Baseline 12-lead ECG shows sinus rhythm with 0.[address] depression inferolaterally. Patient exercised on a Jg protocol for 8-1/2 minutes achieving a peak heart rate of 127 beats per minute. Normal blood pressure response to exercise. There was no ECG evidence for ischemia. No arrhythmias were noted. A 0.[address] depression persisted throughout the study. The baseline 2D echo showed normal LV size systolic function without segmental wall motion abnormalities. At peak exercise, there was excellent augmentation of overall LV contractility without development of any wall motion abnormalities. At recovery, regional global LV systolic function remained normal. IMPRESSION: 1. No ECG or echocardiographic evidence for ischemia. 2. Patient exercised on Jg protocol for 8 -1/2 minutes. MMODL / IJN: [id number] /
[2019-11-08] MEDS ORDERED: ASPIRIN 81 MG PO SCH (21:00)
[2019-11-13] MEDS ORDERED: CHOLECALCIFEROL 1,000 UNIT TAB PO SCH (09:00)
== END 2019-11-08 12:32 | disposition home or self-care (01) ==
LOC: EC 11:38 → 3NCARDOBS 13:26
PROVIDERS: ADMIT Internal Medicine; ATTEND Internal Medicine
DX: R07.89 Other chest pain (principal); E78.00 Pure hypercholesterolemia, unspecified; I25.10 Atherosclerotic heart disease of native coronary artery without angina pectoris; Z95.5 Presence of coronary angioplasty implant and graft; E78.5 Hyperlipidemia, unspecified; M19.90 Unspecified osteoarthritis, unspecified site; K21.9 Gastro-esophageal reflux disease without esophagitis; Z87.19 Personal history of other diseases of the digestive system; Z85.828 Personal history of other malignant neoplasm of skin; J84.10 Pulmonary fibrosis, unspecified; Z80.3 Family history of malignant neoplasm of breast; Z98.42 Cataract extraction status, left eye; Z98.41 Cataract extraction status, right eye; Z98.890 Other specified postprocedural states; F32.9 Major depressive disorder, single episode, unspecified; Z80.9 Family history of malignant neoplasm, unspecified; Z82.3 Family history of stroke; Z87.440 Personal history of urinary (tract) infections; D64.9 Anemia, unspecified; Z79.82 Long term (current) use of aspirin; Z79.899 Other long term (current) drug therapy; Z88.5 Allergy status to narcotic agent; Z88.0 Allergy status to penicillin; Z91.09 Other allergy status, other than to drugs and biological substances
CPT/HCPCS: 93005 ×2; 96372 ×2; 96376; 96365; 96366; 99291; 36415; 93306; 93351; 85379; 80061; 80053; 83690; 83735; 84484; 85025; 85610; 85730; 71046; G0378 ×2; U0003; J1644 ×3

== ENCOUNTER → 2022-03-26 | Outpatient (CLI) | payer MEDICARE ==
[2022-03-27 04:31] LABS: Aspergillus fumagatus IgE <0.10 kU/L; Cladosporian herbarum IgE <0.10 kU/L; Dermato. farinae IgE 0.15 kU/L; Egg White IgE <0.10 kU/L; Peanut IgE <0.10 kU/L; Soybean IgE <0.10 kU/L
== END | disposition home or self-care (01) ==
LOC: LABWHC1 14:22
PROVIDERS: ATTEND Allergy & Immunology
DX: K21.9 Gastro-esophageal reflux disease without esophagitis (principal); J45.41 Moderate persistent asthma with (acute) exacerbation
CPT/HCPCS: 36415; 86003

== ENCOUNTER → 2022-04-25 | Outpatient (CLI) | payer MEDICARE | END | disposition home or self-care (01) | LOC: LABWHC1 15:34 | PROVIDERS: ATTEND Allergy & Immunology | DX: J84.9 Interstitial pulmonary disease, unspecified (principal) | CPT/HCPCS: 36415; 86001; 86606; 86609 ==

== ENCOUNTER → 2022-05-07 | Outpatient (CLI) | payer MEDICARE ==
[2022-05-08 11:16] LABS: Brazil Nut IgE <0.10 kU/L (<0.10); Brazil Nut IgE Class CLASS 0; Pistachio IgE Class CLASS 0
[2022-05-08 11:17] LABS: Alt. alternata IgE Class CLASS 0; Alternaria alternata IgE <0.10 kU/L (<0.10); Crab IgE <0.10 kU/L (<0.10); Crab IgE Class CLASS 0
[2022-05-08 23:01] LABS: Peanut IgE <0.10 kU/L; Shrimp IgE <0.10 kU/L; Soybean IgE <0.10 kU/L
== END | disposition home or self-care (01) ==
LOC: LABWHC1 11:42
PROVIDERS: ATTEND Allergy & Immunology
DX: J45.31 Mild persistent asthma with (acute) exacerbation (principal)
CPT/HCPCS: 36415; 86003

== ENCOUNTER → 2022-07-08 | Outpatient (CLI) | payer MEDICARE ==
--- NOTE | 2022-07-09 07:37 | MR ---
EXAMINATION TYPE: MR shoulder RT wo con DATE OF EXAM: 07/08/2022 COMPARISON: No radiographic correlation available HISTORY: 76-year-old female M25.511, right shoulder pain, no injury, for 2 month, PT and injections n ot helpful TECHNIQUE: Multiplanar, multisequence imaging of the right shoulder is performed without contrast. FINDINGS: There is heterogeneity and some partial bursal sided tearing of the subscapularis tendon. The majorit y of the tendon remains intact. There is either an interstitial or partial split tear of the intracapsular portion of the long head b iceps tendon. The tendon remains appropriately situated along the bicipital groove with mild tenosyno vial fluid. Mild to moderate degenerative change at the acromioclavicular joint with joint space narrowing and mi ld reactive subchondral marrow edema. The lateral acromion shows slight mass effect onto the supraspinatus tendon. No significant effusion within the subacromial/subdeltoid bursa. There is bursal sided fraying of the supraspinatus tendon and heterogeneity throughout both supraspin atus and infraspinatus tendons. No discrete tear is identified. No atrophy of the rotator cuff musculature. There is some soft tissue replacement in the rotator cuff interval and some edematous change along th e axillary recess. Mild joint effusion. Mild thinning of glenohumeral joint articular cartilage without any focal high-g rade cartilage defect seen. No discrete labral tear given nonarthrographic technique and no para labral cyst. No Hill-Sachs deformity or os acromiale. No suspicious bone marrow replacement. IMPRESSION: 1. Mild diffuse rotator cuff tendinosis, greatest involving the subscapularis tendon. There is some b ursal sided fraying of the supraspinatus tendon and some shallow bursal sided tearing of the subscapu adithya tendon. Otherwise, no discrete rotator cuff tear is seen. 2. Soft tissue replacement in the rotator cuff interval and some edematous change along the axillary recess. These are nonspecific findings but may be seen in the setting of adhesive capsulitis. Clinica lly correlate. 3. Either an interstitial versus a partial split tear of the intracapsular portion of the long head b iceps tendon.
== END | disposition home or self-care (01) ==
LOC: RADMRIMAIN 14:21
PROVIDERS: ATTEND Orthopaedic Surgery
DX: M67.813 Other specified disorders of tendon, right shoulder (principal); Z96.611 Presence of right artificial shoulder joint

== ENCOUNTER 2022-12-02 04:25 | Inpatient (IN) | payer MEDICARE ==
[2022-12-02] MEDS ORDERED: IPRATROPIUM-ALBUTEROL 3 ML NEB INHALATION STA ×2 (04:29→06:17)
[2022-12-02] MEDS ORDERED: methylPREDNISolone SOD SUCCI 40 MG/ML 1 ML VIAL IV STA (04:31)
[2022-12-02] MEDS ORDERED: SODIUM CHLORIDE 0.9% 500 ML 500 ML IV STA (04:31)
[2022-12-02 04:49] LABS: Basophils % (A) 0 %; Eosinophils % (A) 0 %; HCT 26.8 % (34.0-46.0); HGB 8.4 gm/dL (11.4-16.0); Hypochromasia Slight; Lymphocytes # (A) 1.5 k/uL (1.0-4.8); Lymphocytes % (A) 19 %; MCH 29.5 pg (25.0-35.0); MCHC 31.6 g/dL (31.0-37.0); MCV 93.4 fL (80.0-100.0); Mean Platelet Volume 8.3; Monocytes # (A) 0.5 k/uL (0-1.0); Monocytes % (A) 6 %; Neutrophils # (A) 5.9 k/uL (1.3-7.7); Neutrophils % (A) 73 %; Platelet Count 371 k/uL (150-450); RBC 2.86 m/uL (3.80-5.40); RDW 15.5 % (11.5-15.5)
[2022-12-02 04:54] LABS: AST 29 U/L (14-36); African American GFR (CKD) >90 (>60 ml/min/1.73 sqM); Albumin 3.6 g/dL (3.5-5.0); Alkaline Phosphatase 97 U/L (38-126); Anion Gap 12 mmol/L; Blood Urea Nitrogen 20 mg/dL (7-17); Calcium 8.9 mg/dL (8.4-10.2); Carbon Dioxide 20 mmol/L (22-30); Chloride 106 mmol/L (98-107); Glucose 185 mg/dL (74-99); Magnesium 1.2 mg/dL (1.6-2.3); Non-African American GFR(CKD) 86 (>60 ml/min/1.73 sqM); Potassium 3.5 mmol/L (3.5-5.1); Sodium 138 mmol/L (137-145); Total Bilirubin 0.4 mg/dL (0.2-1.3); Total Protein 6.3 g/dL (6.3-8.2)
[2022-12-02 05:00] LABS: ALT 25 U/L (4-34)
[2022-12-02 05:02] LABS: NT-Pro-B-Type Natriuretic Pept 623 pg/mL
[2022-12-02] MEDS ORDERED: MAGNESIUM SULFATE-D5W PMX 1 GM in DEXTROSE/WATER 1 100ML.BAG IVPB ONE (05:02)
--- NOTE | 2022-12-02 05:02 | ED ---
General Adult HPI - General Source: patient, family, RN notes reviewed, old records reviewed Mode of arrival: ambulatory <Wyatt Diaz - Last Filed: 12/02/22 06:28> <Abdirahman Persaud - Last Filed: 12/02/22 07:52> - General Stated complaint: Respitory distress Time Seen by Provider: 12/02/22 04:28 - History of Present Illness Initial comments: Patient is a 76-year-old female with past medical history remarkable for skin cancer, ovarian cancer, pancreatic cancer currently undergoing chemoradiation, prior cardiac stent, only fibrosis, recurrent episodes of laryngeal spasm and bronchospasm who presents emergency Department complaining of episode of bron chospasm and laryngeal spasm at home. This has occurred previously and her physicians believe it is secondary to GERD as well as some of the cancer medications she is on. This evening, it seemed to be somewhat worse which is why they called EMS. They attempted to use home inhalers with minimal im provement. EMS provided steroids, as well as a breathing treatment and patient appears much improved at this time. Is normally not on oxygen. States she is feeling improved. Endorses a nonproductive cough which is somewhat chronic. Denies any chest pain, abdominal pain, nausea, vomiting. 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 (Wyatt Diaz) - Related Data Home Medications Medication Instructions Recorded Confirmed Aspirin [Adult Low Dose Aspirin EC] 81 mg PO HS 10/13/16 11/07/19 Esomeprazole Magnesium [NexIUM 20 mg PO BID 10/13/16 11/07/19 24Hr] Multivit-Min/FA/Lycopen/Lutein 1 tab PO DAILY 10/13/16 11/07/19 [Centrum Silver Tablet] Albuterol Inhaler [Ventolin Hfa 2 puff INHALATION RT-QID PRN 11/07/19 11/07/19 Inhaler] Atorvastatin Calcium [Lipitor] 20 mg PO HS 11/07/19 11/07/19 Cholecalciferol [Vitamin D3 (25 10,000 unit PO BONNER 11/07/19 11/07/19 Mcg = 1000 Iu)] Famotidine [Pepcid] 40 mg PO HS 11/07/19 11/07/19 Glucosamine/Chondr Bonner A Sod [Osteo 1 tab PO DAILY 11/07/19 11/07/19 Bi-Flex Caplet] Naproxen Sodium [Aleve] 440 mg PO Q8H PRN 11/07/19 11/07/19 valACYclovir HCL [Valacyclovir] 500 mg PO DAILY 11/07/19 11/07/19 Allergies Allergy/AdvReac Type Severity Reaction Status Date / Time adhesive Allergy Rash/Hives, Verified 12/02/22 07:51 Itching, burning skin morphine Allergy Nausea & Verified 12/02/22 07:51 Vomiting Penicillins Allergy Itching, Verified 12/02/22 07:51 hives Review of Systems ROS Other: All systems not noted in ROS Statement are negative. <Wyatt Diaz - Last Filed: 12/02/22 06:28> ROS Other: All systems not noted in ROS Statement are negative. <Abdirahman Persaud - Last Filed: 12/02/22 07:52> ROS Statement: Those systems with pertinent positive or pertinent negative responses have been documented in the HPI. Review of Systems: CONST: Denies fever EYES: Denies blurry vision ENT: Denies nasal congestion C/V: Denies Chest pain RESP: Endorses dyspnea GI: Denies abdominal pain : Denies dysuria SKIN: Denies rash. MSK: Denies joint pain. NEURO: Denies headache (Wyatt Diaz) Past Medical History Past Medical History: Coronary Artery Disease (CAD), Cancer, Chest Pain / Angina, GERD/Reflux, Osteoarthritis (OA), Respiratory Disorder Additional Past Medical History / Comment(s): Basal cell skin cancer removed from nose, slight pulmonary fibrosis, hiatal hernia, benign stomach polyp, anemia, occasional back pain, seasonal allergies, UTIs History of Any Multi-Drug Resistant Organisms: None Reported Past Surgical History: Heart Catheterization, Heart Catheterization With Stent, Hernia Repair Additional Past Surgical History / Comment(s): PCI with stent, L side upper abdominal hernia repair, skin cancer removed from nose with skin graft, EGD, colonoscopy, bilateral cataract removals/lens implants. Past Anesthesia/Blood Transfusion Reactions: No Reported Reaction, Family History of Problems w/ Anesthesia, Motion Sickness Additional Past Anesthesia/Blood Transfusion Reaction / Comment(s): MOTHER HAS PONV. Date of Last Stent Placement:: 2008 Past Psychological History: No Psychological Hx Reported Smoking Status: Never smoker Past Alcohol Use History: None Reported Past Drug Use History: None Reported - Past Family History Mother Family Medical History: Cancer Additional Family Medical History / Comment(s): Breast cancer. Father Family Medical History: CVA/TIA <Wyatt Diaz - Last Filed: 12/02/22 06:28> General Exam <Kilo Diazrey - Last Filed: 12/02/22 06:28> - General Exam Comments Initial Comments: General: Appears in no acute distress. HEAD: Normal with no signs of head trauma. EYES: PERRLA, EOMI, conjunctiva normal, no discharge. ENT: Hearing grossly intact, normal oropharynx. No stridor. RESPIRATORY: Mild bilateral end expiratory wheezing. No significant hypoxia but currently on 6 L nasal cannula. Increased work of breathing at this time. C/V: Regular rate and rhythm. S1 and S2 auscultated, no edema, peripheral pulses 2+ and intact throughout ABD: Abd is soft, nontender, nondistended EXT: Normal range of motion, no obvious deformity SKIN: No rashes or lesions observed on exposed skin. NEURO: Alert and oriented 4. (Wyatt Diaz) Course Vital Signs 12/02/22 12/02/22 12/02/22 04:29 04:31 04:40 Temperature 98 F Pulse Rate 87 80 82 Respiratory 18 Rate Blood Pressure 109/48 O2 Sat by Pulse 95 Oximetry 12/02/22 12/02/22 12/02/22 07:16 07:28 07:36 Temperature Pulse Rate 80 74 72 Respiratory 18 Rate Blood Pressure 119/54 O2 Sat by Pulse 98 Oximetry Medical Decision Making - Lab Data Result diagrams: 12/02/22 04:33 12/02/22 04:33 - EKG Data -: EKG Interpreted by Me <Waytt Diaz - Last Filed: 12/02/22 06:28> - Lab Data Result diagrams: 12/02/22 04:33 12/02/22 04:33 <Abdirahman Persaud - Last Filed: 12/02/22 07:52> - Medical Decision Making Was pt. sent in by a medical professional or institution (, PA, LEARNING CONSULTANT, urgent care, hospital, or fpc...) When possible be specific @ -No Did you speak to anyone other than the patient for history (EMS, parent, family, police, friend...)? 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 Did you review nursing and triage notes (agree or disagree)? Why? @ -I reviewed and agree with nursing and triage notes Were old charts reviewed (outside hosp., previous admission, EMS record, old EKG, old radiological studies, urgent care reports/EKG's, fpc records)? Report findings @ -Old charts reviewed Differential Diagnosis (chest pain, altered mental status, abdominal pain women, abdominal pain men, vaginal bleeding, weakness, fever, dyspnea, syncope, headache, dizziness, GI bleed, back pain, seizure, CVA, palpatations, mental health, musculoskeletal)? @ -Differential Dyspnea: Coronary syndrome, arrhythmia, tamponade, asthma, COPD, pulmonary embolism, pneumonia, pneumothorax, pulmonary effusion, anaphylaxis, diabetic ketoacidosis, flailed chest, pulmonary contusion, diaphragmatic rupture, anemia, neuromuscular, this is not meant to be an all-inclusive list. EKG interpreted by me (3pts min.). @ -As above X-rays interpreted by me (1pt min.). @ -Chest x-ray shows findings consistent with her chronic pulmonary fibrosis. Radiology concerned for possible CHF. CT interpreted by me (1pt min.). @ -pending U/S interpreted by me (1pt. min.). @ -None done What testing was considered but not performed or refused? (CT, X-rays, U/S, labs)? Why? @ -none What meds were considered but not given or refused? Why? @ -None Did you discuss the management of the patient with other professionals (professionals i.e. , PA, LEARNING CONSULTANT, lab, RT, psych nurse, hospice social worker, web marketing intern, teacher, identification officer, case therapist)? Give summary @ -No Was smoking cessation discussed for >3mins.? @ -No Was critical care preformed (if so, how long)? @ -No Were there social determinants of health that impacted care today? How? (Homelessness, low income, unemployed, alcoholism, drug addiction, transportation, low edu. Level, literacy, decrease access to med. care, chcf, rehab)? @ -No Was there de-escalation of care discussed even if they declined (Discuss DNR or withdrawal of care, Hospice)? DNR status @ -No What co-morbidities impacted this encounter? (DM, HTN, Smoking, COPD, CAD, Cancer, CVA, ARF, Chemo, Hep., AIDS, mental health diagnosis, sleep apnea, morbid obesity)? @ -None Was patient admitted / discharged? Hospital course, mention meds given and route, prescriptions, significant lab abnormalities, going to OR and other pertinent info. @ -Based on the patient's presentation and physical exam, does appear she presents with her typical bronchospasm however we will obtain lavatory studies and slowly wean the patient off oxygen. She is feeling much improved at this time. She does have a history of identical events. She was in agreement this plan. She'll return pretty received IV steroids and therefore we will administer a small IV fluid bolus as well as another breathing treatment. Vital signs are within acceptable limits with the patient 6 L oxygen which we will wean off. EKG showed no signs of acute ischemia.Chest x-ray showed findings setting for pulmonary fibrosis versus CHF. Patient's labs remarkable for a known chronic anemia with no recent hemoglobin and her system but per patient was approximately 9 a few weeks ago. Currently 8.4. BNP is 623. Patient has hypomagnesemia of 1.2. Remainder of the labs are relatively unremarkable. Viral swab is negative. While weaning the patient's oxygen, unable to minute past 2 L. She drops down to 88-90% which appears to be acute as she is not on oxygen at home. I did discuss with her as well as her at this time and we will obtain a CT PE as we cannot definitively rule out pulmonary embolus and. She is in no respiratory distress. However she does become hypoxic. Troponin will also be added on. They were in agreement this plan. Patient will be admitted after CT. CT imaging still pending at this time. Patient signed out time, emergency Department physician Dr. Persaud pending results of imaging. Undiagnosed new problem with uncertain prognosis? @ -No Drug Therapy requiring intensive monitoring for toxicity (Heparin, Nitro, Insulin, Cardizem)? @ -No Were any procedures done? @ -No Diagnosis/symptom? @ -Hypoxic respiratory failure, hypomagnesemia Acute, or Chronic, or Acute on Chronic? @ -Acute Uncomplicated (without systemic symptoms) or Complicated (systemic symptoms)? @ -Complicated Side effects of treatment? @ -none Exacerbation, Progression, or Severe Exacerbation] @ -no Poses a threat to life or bodily function? @ -yes (Wyatt Diaz) Patient's care is signed out at shift change awaiting CT angiography to rule out pulmonary embolism. There is no pulmonary bruising. There is fibrosis on CT. No focal pneumonia, no pneumothorax. Patient will be admitted to internal medicine, case discussed with Anju correia for [facility]. Pulmonology placed on consult. (Abdirahman Persaud) - Lab Data Lab Results 12/02/22 12/02/22 12/02/22 Range/Units 04:33 04:33 04:33 WBC 8.0 (3.8-10.6) k/uL RBC 2.86 L (3.80-5.40) m/uL Hgb 8.4 L (11.4-16.0) gm/dL Hct 26.8 L (34.0-46.0) % MCV 93.4 (80.0-100.0) fL MCH 29.5 (25.0-35.0) pg MCHC 31.6 (31.0-37.0) g/dL RDW 15.5 (11.5-15.5) % Plt Count 371 (150-450) k/uL MPV 8.3 Neutrophils % 73 % Lymphocytes % 19 % Monocytes % 6 % Eosinophils % 0 % Basophils % 0 % Neutrophils # 5.9 (1.3-7.7) k/uL Lymphocytes # 1.5 (1.0-4.8) k/uL Monocytes # 0.5 (0-1.0) k/uL Eosinophils # 0.0 (0-0.7) k/uL Basophils # 0.0 (0-0.2) k/uL Hypochromasia Slight PT 11.0 (9.0-12.0) sec INR 1.0 (<1.2) APTT 19.5 L (22.0-30.0) sec Sodium 138 (137-145) mmol/L Potassium 3.5 (3.5-5.1) mmol/L Chloride 106 (98-107) mmol/L Carbon Dioxide 20 L (22-30) mmol/L Anion Gap 12 mmol/L BUN 20 H (7-17) mg/dL Creatinine 0.65 (0.52-1.04) mg/dL Est GFR (CKD-EPI)AfAm >90 (>60 ml/min/1.73 sqM) Est GFR (CKD-EPI)NonAf 86 (>60 ml/min/1.73 sqM) Glucose 185 H (74-99) mg/dL Calcium 8.9 (8.4-10.2) mg/dL Magnesium 1.2 L (1.6-2.3) mg/dL Total Bilirubin 0.4 (0.2-1.3) mg/dL AST 29 (14-36) U/L ALT 25 (4-34) U/L Alkaline Phosphatase 97 (38-126) U/L Troponin I (0.000-0.034) ng/mL NT-Pro-B Natriuret Pep 623 pg/mL Total Protein 6.3 (6.3-8.2) g/dL Albumin 3.6 (3.5-5.0) g/dL Influenza Type A (PCR) (Not Detectd) Influenza Type B (PCR) (Not Detectd) RSV (PCR) (Not Detectd) SARS-CoV-2 (PCR) (Not Detectd) 12/02/22 12/02/22 Range/Units 04:33 04:46 WBC (3.8-10.6) k/uL RBC (3.80-5.40) m/uL Hgb (11.4-16.0) gm/dL Hct (34.0-46.0) % MCV (80.0-100.0) fL MCH (25.0-35.0) pg MCHC (31.0-37.0) g/dL RDW (11.5-15.5) % Plt Count (150-450) k/uL MPV Neutrophils % % Lymphocytes % % Monocytes % % Eosinophils % % Basophils % % Neutrophils # (1.3-7.7) k/uL Lymphocytes # (1.0-4.8) k/uL Monocytes # (0-1.0) k/uL Eosinophils # (0-0.7) k/uL Basophils # (0-0.2) k/uL Hypochromasia PT (9.0-12.0) sec INR (<1.2) APTT (22.0-30.0) sec Sodium (137-145) mmol/L Potassium (3.5-5.1) mmol/L Chloride (98-107) mmol/L Carbon Dioxide (22-30) mmol/L Anion Gap mmol/L BUN (7-17) mg/dL Creatinine (0.52-1.04) mg/dL Est GFR (CKD-EPI)AfAm (>60 ml/min/1.73 sqM) Est GFR (CKD-EPI)NonAf (>60 ml/min/1.73 sqM) Glucose (74-99) mg/dL Calcium (8.4-10.2) mg/dL Magnesium (1.6-2.3) mg/dL Total Bilirubin (0.2-1.3) mg/dL AST (14-36) U/L ALT (4-34) U/L Alkaline Phosphatase (38-126) U/L Troponin I <0.012 (0.000-0.034) ng/mL NT-Pro-B Natriuret Pep pg/mL Total Protein (6.3-8.2) g/dL Albumin (3.5-5.0) g/dL Influenza Type A (PCR) Not Detected (Not Detectd) Influenza Type B (PCR) Not Detected (Not Detectd) RSV (PCR) Not Detected (Not Detectd) SARS-CoV-2 (PCR) Not Detected (Not Detectd) - EKG Data EKG Comments: 12-lead Electrocardiogram Interpretation Note EKG was reviewed and interpreted by myself. 12-lead ECG performed at 0426 is interpreted by me as revealing normal sinus rhythm at a rate of 81 beats per min [place]. [place] is normal. UT interval is 156 ms, QRS durations 110 ms, QTc is 434 ms.. There were no ST or T wave abnormalities to suggest myocardial ischemia or injury. R wave progression across the precordium was satisfactory. By my interpretation this EKG is non-diagnostic for acute ischemia. (Wyatt Diaz) Disposition <Wyatt Diaz - Last Filed: 12/02/22 06:28> Is patient prescribed a controlled substance at d/c from ED?: No Time of Disposition: 07:52 <Abdirahman Persaud - Last Filed: 12/02/22 07:52> Clinical Impression: Hypomagnesemia, Pulmonary fibrosis, Bronchospasm, Laryngeal spasm Disposition: ADMITTED IP TO THIS HOSP Condition: Stable Referrals: Sanya Rush MD [Primary Care Provider] - 1-2 days
[2022-12-02 05:28] LABS: Partial Thromboplastin Time 19.5 sec (22.0-30.0)
--- NOTE | 2022-12-02 05:32 | XR ---
EXAMINATION TYPE: XR chest 2V DATE OF EXAM: 12/02/2022 COMPARISON: Chest x-ray November 07, 2019 HISTORY: Difficulty in breathing TECHNIQUE: Frontal and lateral views of the chest are obtained. FINDINGS: There is new Left subclavian Mediport catheter terminating in SVC. Cardiac silhouette size is mildly enlarged with bilateral mild to moderate interstitial edema on current study. No pleural e ffusion or pneumothorax is evident bilaterally. The osseous structures are intact. IMPRESSION: Findings consistent with CHF exacerbation are felt present. Correlate clinically.
--- NOTE | 2022-12-02 07:39 | CT ---
EXAMINATION TYPE: CT chest angio for PE DATE OF EXAM: 12/02/2022 COMPARISON: HISTORY: Dyspnea, Pancreatic Cancer CT DLP: 242.4 mGycm CONTRAST: CT chest with contrast and 3D reconstruction with MIP imaging is performed without and with IV Contra st, patient injected with 100 ml mL of Isovue 370. Contrast-enhanced CT of the chest was performed through the course of the pulmonary arteries with matthew g and mediastinal window settings submitted. 3D reconstruction with MIP imaging was also performed. PULMONARY ARTERIES: The pulmonary arteries and their major tributaries are patent. I do not see lauryn dence for sizable filling defect to suggest pulmonary embolic process. LUNGS: The lungs are clear and free of infiltrate. Basilar fibrotic changes noted. No evidence for at electasis. No pulmonary nodule or mass is detected. No pleural effusion. MEDIASTINUM: Thoracic aorta is of normal caliber.The heart is mildly enlarged. No evidence for medi astinal mass. No mediastinal lymph nodes greater than 1cm. HILAR STRUCTURES: No evidence for mass. No hilar lymph nodes greater than 1 cm. UPPER ABDOMEN: No significant abnormality is seen. IMPRESSION: 1. No evidence for Pulmonary embolism at this time.
[2022-12-02] MEDS ORDERED: NALOXONE 0.4 MG/ML 1 ML VIAL IVP PRN (07:45)
[2022-12-02] MEDS ORDERED: IPRATROPIUM-ALBUTEROL 3 ML NEB INHALATION PRN (07:45)
[2022-12-02] MEDS: methylPREDNISolone SOD SUCCI 125 MG/2 ML VIAL IV SCH ×3 (08:23→23:49)
[2022-12-02] MEDS: IPRATROPIUM-ALBUTEROL 3 ML NEB INHALATION SCH ×4 (09:19→19:55)
[2022-12-02] MEDS: MAGNESIUM SULFATE-D5W PMX 1 GM in DEXTROSE/WATER 1 100ML.BAG IVPB SCH ×2 (10:59→12:26)
--- NOTE | 2022-12-02 11:42 | P.CNPUL ---
History of Present Illness Consult date: 12/02/22 Requesting physician: Alexander Chi Reason for consult: dyspnea, cough Chief complaint: Shortness of breath, cough, congestion History of present illness: This is a very pleasant 76-year-old female patient with a known history of coronary artery disease and previous stent placement, mild pulmonary fibrosis, gastroesophageal reflux disease, hiatal hernia, status post hernia repair, history of uterine cancer status post surgery one and half years ago, recent diagnosis of pancreatic cancer status post surgery in September 2022 [facility]. She is on chemotherapy every 2 weeks for 6 months. She is a lifelong nonsmoker. 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 She presented to the emergency room early this morning after waking up having difficulty in breathing difficulty in taking in a deep breath and coughing. She states it felt like a laryngeal spasm or possibly bronchospasm which she has had in the past. Chest x-ray showed bilateral mild to moderate interstitial edema. No pleural effusion. No pneumothorax. No patchy opacities. CT angiogram ruled out pulmonary embolism. Lungs were clear and free of infiltrate. Basilar fibrotic changes noted. White count 8.0. Hemoglobin 8.4. Platelets 371. Sodium 138. Potassium 3.5. Bicarb 20. BUN 20. Creatinine 0.65. Glucose 185. Troponin negative times one. ProBNP 623. Influenza screen negative. RSV screen n egative. COVID-19 screen negative. She is currently maintaining good O2 saturations in the upper 90s on 2 L/m per nasal cannula. Afebrile. Hemodynamically stable. She is seen in consultation in the emergency department. Currently sitting up. She has a dry nonproductive cough. She is feeling a bit better than earlier this morning. Review of Systems REVIEW OF SYSTEMS: CONSTITUTIONAL: Denies any recent significant weight loss or weight gain. EYES: Denies change in vision. EARS, NOSE, MOUTH, THROAT: Denies headaches, denies sore throat. CARDIOVASCULAR: Denies chest pain, palpitations or syncopal episodes. RESPIRATORY: Positive for shortness of breath, cough, congestion no hemoptysis. GASTROINTESTINAL: Denies change in appetite, denies abdominal pain GENITOURINARY: Denies hematuria, denies infections. MUSKULOSKELETAL: Denies pain, denies swelling. INTEGUMENTARY: Denies rash, denies eczema. NEUROLOGICAL: Denies recent memory loss, no recent seizure activity. PSYCHIATRIC: Denies anxiety, denies depression. HEMATOLOGIC/LYMPHATIC: Denies anemia, denies enlarged lymph nodes. Past Medical History Past Medical History: Coronary Artery Disease (CAD), Cancer, Chest Pain / Angina, GERD/Reflux, Osteoarthritis (OA), Respiratory Disorder Additional Past Medical History / Comment(s): Basal cell skin cancer removed from nose, slight pulmonary fibrosis, hiatal hernia, benign stomach polyp, anemi a, occasional back pain, seasonal allergies, UTIs History of Any Multi-Drug Resistant Organisms: None Reported Past Surgical History: Heart Catheterization, Heart Catheterization With Stent, Hernia Repair Additional Past Surgical History / Comment(s): PCI with stent, L side upper abdominal hernia repair, skin cancer removed from nose with skin graft, EGD, colonoscopy, bilateral cataract removals/lens implants. Past Anesthesia/Blood Transfusion Reactions: No Reported Reaction, Family History of Problems w/ Anesthesia, Motion Sickness Additional Past Anesthesia/Blood Transfusion Reaction / Comment(s): MOTHER HAS PONV. Date of Last Stent Placement:: 2008 Past Psychological History: No Psychological Hx Reported Smoking Status: Never smoker Past Alcohol Use History: None Reported Past Drug Use History: None Reported - Past Family History Mother Family Medical History: Cancer Additional Family Medical History / Comment(s): Breast cancer. Father Family Medical History: CVA/TIA Medications and Allergies Home Medications Medication Instructions Recorded Confirmed Type Aspirin [Adult Low Dose Aspirin EC] 81 mg PO HS 10/13/16 12/02/22 History Esomeprazole Magnesium [NexIUM 20 mg PO BID 10/13/16 12/02/22 History 24Hr] Multivit-Min/FA/Lycopen/Lutein 1 tab PO DAILY 10/13/16 12/02/22 History [Centrum Silver Tablet] valACYclovir HCL [Valacyclovir] 500 mg PO BID PRN 11/07/19 12/02/22 History 5-Fu 1 dose IV DIRECTED 12/02/22 12/02/22 History Atorvastatin [Lipitor] 40 mg PO HS 12/02/22 12/02/22 History Cholecalciferol (Vitamin D3) 75 mcg PO DAILY 12/02/22 12/02/22 History [Vitamin D3 (3000 Iu)] Diphenoxylate HCl/Atropine 1 tab PO QID PRN 12/02/22 12/02/22 History [Lomotil 2.5-0.025 mg Tablet] Lipase/Protease/Amylase [[place] Dr 1 cap PO QID 12/02/22 12/02/22 History 6,000 Unit Capsule] Loperamide HCl [Loperamide] 2 mg PO Q4H PRN 12/02/22 12/02/22 History Ondansetron [Zofran] 4 mg PO QID PRN 12/02/22 12/02/22 History Prochlorperazine [Compazine] 10 mg PO Q6H PRN 12/02/22 12/02/22 History Sertraline [Zoloft] 50 mg PO DAILY 12/02/22 12/02/22 History Ubidecarenone [Co Q-10] 300 mg PO DAILY 12/02/22 12/02/22 History Allergies Allergy/AdvReac Type Severity Reaction Status Date / Time adhesive Allergy Rash/Hives, Verified 12/02/22 07:51 Itching, burning skin morphine Allergy Nausea & Verified 12/02/22 07:51 Vomiting Penicillins Allergy Itching, Verified 12/02/22 07:51 hives Physical Exam Vitals: Vital Signs Temp Pulse Resp BP Pulse Ox 12/02/22 08:36 81 19 105/54 97 12/02/22 07:36 72 12/02/22 07:28 74 12/02/22 07:16 80 18 119/54 98 12/02/22 04:40 82 12/02/22 04:31 80 12/02/22 04:29 98 F 87 18 109/48 95 Intake and Output 12/01/22 12/02/22 12/02/22 22:59 06:59 14:59 Other: Weight 63.957 kg GENERAL EXAM: Alert, very pleasant 76-year-old female, on 2 L nasal cannula, fairly comfortable in no apparent distress. HEAD: Normocephalic. EYES: Normal reaction of pupils, equal size. NOSE: Clear with pink turbinates. THROAT: No erythema or exudates. NECK: No masses, no JVD. CHEST: No chest wall deformity. LUNGS: Equal air entry with faint basilar crackles. CVS: S1 and S2 normal with no audible murmur, regular rhythm. ABDOMEN: No hepatosplenomegaly, normal bowel sounds, no guarding or rigidity. SPINE: No scoliosis or deformity SKIN: No rashes CENTRAL NERVOUS SYSTEM: No focal deficits, tone is normal in all 4 extremities. EXTREMITIES: There is no peripheral edema. No clubbing, no cyanosis. Peripheral pulses are intact. Results - Laboratory Findings CBC and BMP: 12/02/22 04:33 12/02/22 04:33 PT/INR, D-dimer PT 11.0 sec (9.0-12.0) 12/02/22 04:33 INR 1.0 (<1.2) 12/02/22 04:33 Abnormal lab findings: Abnormal Labs 12/02/22 12/02/22 12/02/22 04:33 04:33 04:33 RBC 2.86 L Hgb 8.4 L Hct 26.8 L APTT 19.5 L Carbon Dioxide 20 L BUN 20 H Glucose 185 H Magnesium 1.2 L - Diagnostic Findings Chest x-ray: image reviewed CT scan - chest: image reviewed Assessment and Plan Assessment: Dyspnea suspect secondary to bronchospasm versus laryngeal spasm and acid reflux History of gastroesophageal reflux disease. Maintained on Nexium twice a day History of mild pulmonary fibrosis with chronic cough Pancreatic cancer diagnosed in September 2022, status post surgery in [facility], currently receiving chemotherapy 5-Fu History of uterine cancer status post surgery approximately one and half years ago Coronary artery disease with previous stent placement History of hiatal hernia status post repair Nonsmoker Plan: The patient was seen and evaluated Chest x-ray, computed tomography scan, labs and medications reviewed Continue steroids Continue bronchodilators Increase PPI Titrate the FiO2 as tolerated Probable discharge in the a.m. We'll continue to follow and make further recommendations based on her clinical status I have personally seen and examined the patient, performed the documentation and the assessment and plan as written. Number of minutes spent on the visit: 20.
--- NOTE | 2022-12-02 16:10 | P.HPIM ---
History of Present Illness H&P Date: 12/02/22 This is a pleasant 76-year-old female who presented to the emergency department via EMS with significant shortness of breath and difficulty breathing. Patient follows with Sanya Martin in the outpatient setting with a past medical history of coronary artery disease, cancer, angina, GERD, osteoarthritis, respiratory disorder. Patient has previous history of basal cell skin cancer with pulmonary fibrosis, previous hysterectomy from cancer with Dr. Sousa out of [facility], PCI stenting. Patient denies ever smoking and denies drinking or illicit drug use. Patient has been having a cough and follows with her lung specialist outpatient at least 5-6 months ago and reports had a CAT scan along with PET scanning was told everything was fine with mild fibrosis noted. Patient is is being admitted with shortness of breath with bronchospasm and pulmonary has been consulted. Patient reports she is undergoing chemoradiation at [facility] for pancreatic cancer and sees Dr. Weiss and just received chemo one day prior. Patient started having some frequent coughing spells with laryngeal spasms and bronchospasms making it difficulty to breathe. Patient currently maintained on 3 L via nasal cannula and does not wear oxygen outpatient. Labs revealed no white count, hemoglobin is 8.4, sodium 138, potassium 3.5, BUN 20 with a creatinine of 0.65, magnesium 1.2, troponin was negative, BNP was 623 and virology testing was all negative including influenza, RSV, Covid. EKG showed sinus rhythm, chest x-ray showed no pleural effusion or pneumothorax noted with findings consistent with CHF exacerbation to correlate clinically. Review Of Systems: Constitutional: No fever, no chills, no night sweats. No weight change. No weakness, fatigue or lethargy. No daytime sleepiness. EENT: No headache. No blurred vision or double vision, no loss of vision. No loss of Hearing, no ringing in the ears, no dizziness. No nasal drainage or congestion. No epistaxis. No sore throat. Lungs: Reports shortness of breath, reports cough, no sputum production. No wheezing. Cardiovascular: No chest pain, no lower extremity edema. No palpitations. No paroxysmal nocturnal dyspnea. No orthopnea. No lightheadedness or dizziness. No syncopal episodes. Abdominal: No abdominal pain. No nausea, vomiting. No diarrhea. No constipation. No bloody or tarry stools.. No loss of appetite. Genitourinary: No dysuria, increased frequency, urgency. No urinary retention. Musculoskeletal: No myalgias. No muscle weakness, no gait dysfunction, no frequent falls. No back pain. No neck pain. Integumentary: No wounds, no lesions. No rash or pruritus. No unusual bruising. No change in hair or nails. Neurologic: No aphasia. No facial droop. No change in mentation. No head injury. No headache. No paralysis. No paresthesia. Psychiatric: No depression. No anxiety. No mood swings. Endocrine: No abnormal blood sugars. No weight change. No excessive sweating or thirst. No cold intolerance. PHYSICAL EXAMINATION: GENERAL: The patient is alert and oriented x4, Well developed, well nourished. HEENT: Pupils are round and equally reacting to light. EOMI. no scleral icterus. No conjunctival pallor. Normocephalic, atraumatic. No pharyngeal erythema. No thyromegaly. CARDIOVASCULAR: S1 and S2 muffled PULMONARY: diminished breath sounds bilaterally with no wheezing or rhonchi noted. ABDOMEN: soft. Nontender on exam. obese. non-distended, normoactive bowel sounds. No palpable organomegaly. MUSCULOSKELETAL: No joint swelling or deformity. EXTREMITIES: No cyanosis, clubbing, or pedal edema. NEUROLOGICAL: Gross neurological examination did not reveal any focal deficits. Diffuse weakness SKIN: No rashes. Assessment: Shortness of breath, most likely secondary to bronchospasms Acute hypoxic respiratory failure secondary to bronchospasm versus laryngospasm History of pancreatic cancer currently undergoing chemoradiation 5 FU at [facility] Dr. Weiss Hypomagnesemia History of uterine cancer status post hysterectomy History of GERD History of pulmonary fibrosis with chronic cough History of coronary disease disease with previous PCI stenting History of osteoarthritis Lifelong nonsmoker GI prophylaxis DVT prophylaxis Full code Plan: Patient has been started on breathing inhalational treatments along with IV steroids and will continue Magnesium 1.2 and will replace and follow up with repeat labs Encouraged increased activity as tolerated Continue to wean FiO2 as tolerated and patient is currently maintained on 2-3 L via nasal cannula and does not wear oxygen outpatient Patient following with oncologist out of [facility] currently undergoing chemoradiation for pancreatic cancer Patient will need outpatient pulmonary follow-up with her canvas cutter machine. Will replace electrolytes per protocol Overall prognosis is guarded Possible discharge planning in the next 24-48 hours The impression and plan of care has been dictated by Anju Schafer, nurse practitioner as directed. Dr. Jimy MD I have performed a history and examination and MDM of this patient, discussed the same with the dictator, and agree with the dictator's assessment and plan as written ,documented as a scribe. Based on total visit time, I have performed more than 50% of the visit. Any additional findings or plans will be noted. Past Medical History Past Medical History: Coronary Artery Disease (CAD), Cancer, Chest Pain / Angina, GERD/Reflux, Osteoarthritis (OA), Respiratory Disorder Additional Past Medical History / Comment(s): Basal cell skin cancer removed from nose, slight pulmonary fibrosis, hiatal hernia, benign stomach polyp, anemia, occasional back pain, seasonal allergies, UTIs History of Any Multi-Drug Resistant Organisms: None Reported Past Surgical History: Heart Catheterization, Heart Catheterization With Stent, Hernia Repair Additional Past Surgical History / Comment(s): PCI with stent, L side upper abdominal hernia repair, skin cancer removed from nose with skin graft, EGD, colonoscopy, bilateral cataract removals/lens implants. Past Anesthesia/Blood Transfusion Reactions: No Reported Reaction, Family History of Problems w/ Anesthesia, Motion Sickness Additional Past Anesthesia/Blood Transfusion Reaction / Comment(s): MOTHER HAS PONV. Date of Last Stent Placement:: 2008 Past Psychological History: No Psychological Hx Reported Smoking Status: Never smoker Past Alcohol Use History: None Reported Past Drug Use History: None Reported - Past Family History Mother Family Medical History: Cancer Additional Family Medical History / Comment(s): Breast cancer. Father Family Medical History: CVA/TIA Medications and Allergies Home Medications Medication Instructions Recorded Confirmed Type Aspirin [Adult Low Dose Aspirin EC] 81 mg PO HS 10/13/16 12/02/22 History Esomeprazole Magnesium [NexIUM 20 mg PO BID 10/13/16 12/02/22 History 24Hr] Multivit-Min/FA/Lycopen/Lutein 1 tab PO DAILY 10/13/16 12/02/22 History [Centrum Silver Tablet] valACYclovir HCL [Valacyclovir] 500 mg PO BID PRN 11/07/19 12/02/22 History 5-Fu 1 dose IV DIRECTED 12/02/22 12/02/22 History Atorvastatin [Lipitor] 40 mg PO HS 12/02/22 12/02/22 History Cholecalciferol (Vitamin D3) 75 mcg PO DAILY 12/02/22 12/02/22 History [Vitamin D3 (3000 Iu)] Diphenoxylate HCl/Atropine 1 tab PO QID PRN 12/02/22 12/02/22 History [Lomotil 2.5-0.025 mg Tablet] Lipase/Protease/Amylase [[place]jo [place]ar 1 cap PO QID 12/02/22 12/02/22 History 6,000 Unit Capsule] Loperamide HCl [Loperamide] 2 mg PO Q4H PRN 12/02/22 12/02/22 History Ondansetron [Zofran] 4 mg PO QID PRN 12/02/22 12/02/22 History Prochlorperazine [Compazine] 10 mg PO Q6H PRN 12/02/22 12/02/22 History Sertraline [Zoloft] 50 mg PO DAILY 12/02/22 12/02/22 History Ubidecarenone [Co Q-10] 300 mg PO DAILY 12/02/22 12/02/22 History Allergies Allergy/AdvReac Type Severity Reaction Status Date / Time adhesive Allergy Rash/Hives, Verified 12/02/22 07:51 Itching, burning skin morphine Allergy Nausea & Verified 12/02/22 07:51 Vomiting Penicillins Allergy Itching, Verified 12/02/22 07:51 hives Physical Exam Vitals: Vital Signs Temp Pulse Resp BP Pulse Ox 12/02/22 08:36 81 19 105/54 97 12/02/22 07:36 72 12/02/22 07:28 74 12/02/22 07:16 80 18 119/54 98 12/02/22 04:40 82 12/02/22 04:31 80 12/02/22 04:29 98 F 87 18 109/48 95 Intake and Output 12/01/22 12/02/22 12/02/22 22:59 06:59 14:59 Other: Weight 63.957 kg Results CBC & Chem 7: 12/02/22 04:33 12/02/22 04:33 Labs: Abnormal Lab Results - Last 24 Hours (Table) 12/02/22 12/02/22 12/02/22 Range/Units 04:33 04:33 04:33 RBC 2.86 L (3.80-5.40) m/uL Hgb 8.4 L (11.4-16.0) gm/dL Hct 26.8 L (34.0-46.0) % APTT 19.5 L (22.0-30.0) sec Carbon Dioxide 20 L (22-30) mmol/L BUN 20 H (7-17) mg/dL Glucose 185 H (74-99) mg/dL Magnesium 1.2 L (1.6-2.3) mg/dL Thrombosis Risk Factor Assmnt - DVT/VTE Prophylaxis DVT/VTE Prophylaxis: Mechanical Prophylaxis ordered Assessment and Plan Time with Patient: Greater than 30
[2022-12-02] MEDS: ACETAMINOPHEN TAB 325 MG TAB PO PRN (17:54)
[2022-12-02] MEDS: PANTOPRAZOLE 40 MG TABLET PO SCH (17:54)
[2022-12-02 22:29] LABS: Appearance,Urine Clear (Clear); Bilirubin,Urine Negative (Negative); Blood,Urine Negative (Negative); Color,Urine Colorless; Glucose,Urine (UA) Negative (Negative); Ketones,Urine Negative (Negative); Leukocyte Esterase,Urine Negative (Negative); Nitrite,Urine Negative (Negative); Protein,Urine Negative (Negative); Specific Gravity,Urine 1.008 (1.001-1.035); Urobilinogen,Urine <2.0 mg/dL (<2.0)
[2022-12-03] MEDS: ACETAMINOPHEN TAB 325 MG TAB PO PRN (06:39)
--- NOTE | 2022-12-03 07:14 | CA ---
Transthoracic Echo Report Name: Shantel Fox Age: 76 Gender: F : 1945 Exam Date: 12/02/2022 10:16 Exam Location: [place] [facility] Ht (in): 63 Wt (lb): 141 Ordering Physician: Abdirahman Persaud MD Attending/Referring Phys: [id number], Hung Web Interface Developer Tristan Otoole Procedure CPT: Indications: sob Cardiac Hx: Technical Quality: Fair Contrast 1: Total Dose (mL): Contrast 2: Total Dose (mL): MEASUREMENTS (Male / Female) Normal Values 2D ECHO LV Diastolic Diameter PLAX 4.8 cm 4.2 - 5.9 / 3.9 - 5.3 cm LV Systolic Diameter PLAX 3.0 cm IVS Diastolic Thickness 1.0 cm 0.6 - 1.0 / 0.6 - 0.9 cm LVPW Diastolic Thickness 0.9 cm 0.6 - 1.0 / 0.6 - 0.9 cm LV Relative Wall Thickness 0.4 RV Internal Dim ED PLAX 2.5 cm LVOT Diameter 1.8 cm Aortic Root Diameter 2.6 cm LA Systolic Diameter LX 3.1 cm 3.0 - 4.0 / 2.7 - 3.8 cm LV Diastolic Volume MOD BP 70.8 cm??? 67 - 155 / 56 - 104 cm??? LV Systolic Volume MOD BP 31.1 cm??? 22 - 58 / 19 - 49 cm??? LV Ejection Fraction MOD BP 56.1 % >= 55 % LV Cardiac Index MOD BP 1732.9 cm???/min???m??? LV Diastolic Volume MOD 4C 69.3 cm??? LV Systolic Volume MOD 4C 25.8 cm??? LV Ejection Fraction MOD 4C 62.7 % LV Cardiac Index MOD 4C 1895.2 cm???/min???m??? LV Diastolic Length 4C 7.1 cm LV Systolic Length 4C 5.7 cm LV Diastolic Volume MOD 2C 63.0 cm??? LV Systolic Volume MOD 2C 36.3 cm??? LV Ejection Fraction MOD 2C 42.4 % LV Cardiac Index MOD 2C 1164.8 cm???/min???m??? LV Diastolic Length 2C 6.2 cm LV Systolic Length 2C 5.9 cm LA Volume 43.1 cm??? 18 - 58 / 22 - 52 cm??? DOPPLER AV Peak Velocity 165.5 cm/s AV Peak Gradient 11.0 mmHg LVOT Peak Velocity 127.7 cm/s LVOT Peak Gradient 6.5 mmHg AV Area Cont Eq pk 2.1 cm??? MV Peak Velocity 125.0 cm/s MV Peak Gradient 6.3 mmHg MV Mean Velocity 61.9 cm/s MV Mean Gradient 1.9 mmHg MV Velocity Time Integral 38.4 cm MR Peak Velocity 324.6 cm/s MR Peak Gradient 42.2 mmHg Mitral E Point Velocity 90.7 cm/s Mitral A Point Velocity 88.0 cm/s Mitral E to A Ratio 1.0 MV Deceleration Time 275.8 ms MV E' Velocity 8.6 cm/s Mitral E to MV E' Ratio 10.5 TR Peak Velocity 264.6 cm/s TR Peak Gradient 28.0 mmHg Right Ventricular Systolic Press 33.0 mmHg PV Peak Velocity 125.6 cm/s PV Peak Gradient 6.3 mmHg FINDINGS Left Ventricle Normal LV size and wall thickness. Left ventricular ejection fraction is estimated at 55-60 %. Right Ventricle Normal right ventricular size. RVSP= 35mmhg. Right Atrium Normal right atrial size. Left Atrium Normal left atrial size. LA volume index= 26ml/m2 Mitral Valve Structurally normal mitral valve. Trace MR. Aortic Valve Trileaflet aortic valve. No aortic valve stenosis or regurgitation. Tricuspid Valve Structurally normal tricuspid valve. Mild TR. Pulmonic Valve Pulmonic valve not well visualized. No pulmonic regurgitation. Pericardium Normal pericardium. Aorta Normal size aortic root. CONCLUSIONS Normal biventricular dimension and systolic function Normal pulmonary artery systolic pressure Normal intracardiac valves No evidence of pericardial effusion Previewed by: Dr. Huseyin Diamond MD (Electronically Signed) Final Date: 03 December 2022 07:13
[2022-12-03] MEDS: methylPREDNISolone SOD SUCCI 125 MG/2 ML VIAL IV SCH (08:44)
[2022-12-03] MEDS: PANTOPRAZOLE 40 MG TABLET PO SCH (08:44)
[2022-12-03] MEDS: IPRATROPIUM-ALBUTEROL 3 ML NEB INHALATION SCH (08:59)
[2022-12-03 11:43] VITALS: BP 109/50; RESP 18; TEMP 97.9
[2022-12-03 12:24] LABS: African American GFR (CKD) >90 (>60 ml/min/1.73 sqM); Anion Gap 8 mmol/L; Blood Urea Nitrogen 23 mg/dL (7-17); Calcium 9.1 mg/dL (8.4-10.2); Carbon Dioxide 26 mmol/L (22-30); Chloride 105 mmol/L (98-107); Glucose 163 mg/dL (74-99); Magnesium 2.3 mg/dL (1.6-2.3); Non-African American GFR(CKD) 86 (>60 ml/min/1.73 sqM); Potassium 4.4 mmol/L (3.5-5.1); Sodium 139 mmol/L (137-145)
--- NOTE | 2022-12-03 12:33 | P.PN ---
Subjective Progress Note Date: 12/03/22 This is a very pleasant 76-year-old female patient with a known history of coronary artery disease and previous stent placement, mild pulmonary fibrosis, gastroesophageal reflux disease, hiatal hernia, status post hernia repair, history of uterine cancer status post surgery one and half years ago, recent diagnosis of pancreatic cancer status post surgery in September 2022 [facility]. She is on chemotherapy every 2 weeks for 6 months. She is a lifelong nonsmoker. 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 She presented to the emergency room early this morning after waking up having difficulty in breathing difficulty in taking in a deep breath and coughing. She states it felt like a laryngeal spasm or possibly bronchospasm which she has had in the past. Chest x-ray showed bilateral mild to moderate interstitial edema. No pleural effusion. No pneumothorax. No patchy opacities. CT angiogram ruled out pulmonary embolism. Lungs were clear and free of infiltrate. Basilar fibrotic changes noted. White count 8.0. Hemoglobin 8.4. Platelets 371. Sodium 138. Potassium 3.5. Bicarb 20. BUN 20. Creatinine 0.65. Glucose 185. Troponin negative times one. ProBNP 623. Influenza screen negative. RSV screen negative. COVID-19 screen negative. She is currently maintaining good O2 saturations in the upper 90s on 2 L/m per nasal cannula. Afebrile. Hemodynamically stable. She is seen in consultation in the emergency department. Currently sitting up. She has a dry nonproductive cough. She is feeling a bit better than earlier this morning. The patient is seen today 12/03/2022 follow-up on the regular medical floor. She is sitting up in bed. Awake and alert in no acute distress. She is breathing easier today compared to yesterday. No further bronchospasm. No wheezing. Maintaining O2 saturations in the mid 90s on room air. She's been afebrile. Hemodynamically stable. Echocardiogram revealed normal biventricular dimensions and systolic function. No significant valvular Valvular abnormalities. Sodium 139. Potassium 4.4. Bicarb 26. BUN 23. Creatinine 0.65. Glucose 163. She is continued on DuoNeb inhalations, IV Solu-Medrol, Protonix. Objective - Vital Signs Vital signs: Vital Signs Temp 97.9 F 12/03/22 11:30 Pulse 79 12/03/22 11:30 Resp 18 12/03/22 11:30 BP 109/50 12/03/22 11:30 Pulse Ox 95 12/03/22 11:30 FiO2 Intake & Output 12/02/22 12/03/22 12/03/22 18:59 06:59 18:59 Output Total 600 Balance -600 Weight 70 kg Output: Urine 600 Other: Voiding Method Toilet - Exam GENERAL EXAM: Alert, pleasant 76-year-old female, on room air, fairly comfortable in no apparent distress. HEAD: Normocephalic. EYES: Normal reaction of pupils, equal size. NOSE: Clear with pink turbinates. THROAT: No erythema or exudates. NECK: No masses, no JVD. CHEST: No chest wall deformity. LUNGS: Equal air entry with faint basilar crackles. CVS: S1 and S2 normal with no audible murmur, regular rhythm. ABDOMEN: No hepatosplenomegaly, normal bowel sounds, no guarding or rigidity. SPINE: No scoliosis or deformity SKIN: No rashes CENTRAL NERVOUS SYSTEM: No focal deficits, tone is normal in all 4 extremities. EXTREMITIES: There is no peripheral edema. No clubbing, no cyanosis. Perip heral pulses are intact. - Labs CBC & Chem 7: 12/02/22 04:33 12/03/22 11:16 Labs: Abnormal Lab Results - Last 24 Hours (Table) 12/03/22 Range/Units 11:16 BUN 23 H (7-17) mg/dL Glucose 163 H (74-99) mg/dL Assessment and Plan Assessment: Dyspnea suspect secondary to bronchospasm versus laryngeal spasm and acid reflux History of gastroesophageal reflux disease. Maintained on Nexium twice a day History of mild pulmonary fibrosis with chronic cough Pancreatic cancer diagnosed in September 2022, status post surgery in [facility], currently receiving chemotherapy 5-Fu History of uterine cancer status post surgery approximately one and half years ago Coronary artery disease with previous stent placement History of hiatal hernia status post repair Nonsmoker Plan: The patient was seen and evaluated Labs and medications reviewed Discontinue Solu-Medrol, complete a Medrol Dosepak Continue albuterol HFA as needed Increase her home dose of Nexium Cleared for discharge from the pulmonary standpoint I have personally seen and examined the patient, performed the documentation and the assessment and plan as written. Number of minutes spent on the visit: 10.
[2022-12-03] MEDS ORDERED: ALBUTEROL HFA INHALER INHALATION PRN (12:34)
[2022-12-03 14:20] VITALS: PULSE 74
[2022-12-04] MEDS ORDERED: methylPREDNISolone 4 MG TAB TAPER PO SCH (09:00)
--- NOTE | 2022-12-04 09:28 | P.DS ---
Providers Date of admission: 12/02/22 07:51 Expected date of discharge: 12/03/22 Attending physician: Amish Arizmendi Consults: 12/02/22 07:45 Consult Physician Routine Consulting Provider: Bruce Suh Consult Reason/Comments: fibrosis, bronchospasm, Do you want consulting provider notified?: Yes Primary care physician: Sanya Rush MD Hospital Course: Final diagnosis Shortness of breath, most likely secondary to bronchospasms versus laryngospasm Acute hypoxic respiratory failure secondary to bronchospasm versus laryngospasm History of pancreatic cancer currently undergoing chemoradiation 5 FU at [facility] Dr. Ayala Hypomagnesemia History of uterine cancer status post hysterectomy History of GERD History of pulmonary fibrosis with chronic cough History of coronary disease disease with previous PCI stenting History of osteoarthritis Lifelong nonsmoker GI prophylaxis DVT prophylaxis Full code Discharge disposition Patient is being discharged in a stable condition with guarded prognosis to home. Patient will follow-up with Dr. Rush in the outpatient setting upon discharge. Patient is to continue with Medrol Dosepak along with taking her N exium twice daily and close outpatient follow-up with pulmonary as scheduled. Total time taken is greater than 35 minutes. Hospital course This is a 76-year-old female who was recently admitted with shortness of breath and acute hypoxic respiratory failure secondary to bronchospasms with concerns of laryngospasm. Pulmonary evaluating the patient maintained on IV steroids and breathing treatments showing improvement in his room air reporting no further spasms or shortness of breath. Patient follows with Dr. smith out of [facility] pulmonary and has been instructed to follow-up this week. Patient also receiving oncological care with Dr. Johnson and undergoing chemo therapy for pancreatic cancer. There was concern of possible side effect from chemo causing laryngospasm. Patient has significant GERD and takes Nexium 40 mg daily. Patient has been instructed to take Nexium twice daily and follow-up with her home care associate this week. Patient reports to feeling better and would like to go home. Patient has been cleared by consultations and will continue Medrol Dosepak on discharge as well. Please refer to pulmonary no for further HPI. Currently no reports of chest pain, shortness of breath, or palpitations. Patient is afebrile. No reports of nausea or vomiting and patient is tolerating diet. Patient will be discharged home today. Physical exam: Gen: This is a 76-year-old female who is awake, alert and oriented 3, well- developed, well-nourished HEENT: Head is atraumatic, normocephalic. Pupils equal, round. Sclerae is anicteric. NECK: Supple. No JVD. No lymphadenopathy. No thyromegaly. LUNGS: Diminished breath sounds bilaterally with some scattered rhonchi at the bases. No intercostal retractions. HEART: Regular rate and rhythm. No murmur. ABDOMEN: Soft. Bowel sounds are present. No masses. No tenderness. EXTREMITIES: No pedal edema. No calf tenderness. NEUROLOGICAL: Patient is awake, alert and oriented x3. Cranial nerves 2 through 12 are grossly intact. Please refer to medication reconciliation sheet for a list of medications. The impression and plan of care has been dictated by Anju Schafer, Nurse Practitioner as directed. Dr. Jimy MD I have performed a history and examination and MDM of this patient, discussed the same with the dictator, and agree with the dictator's assessment and plan as written ,documented as a scribe. Based on total visit time, I have performed more than 50% of the visit. Patient Condition at Discharge: Stable Plan - Discharge Summary New Discharge Prescriptions: New methylPREDNISolone Dose Pack [Medrol Dose Pack] 4 mg PO DIRECTED #21 tab Ipratropium-Albuterol Nebulize [Duoneb 0.5 mg-3 mg/3 ml Soln] 3 ml INHALATION RT-QID #0 each Ipratropium-Albuterol Nebulize [Duoneb 0.5 mg-3 mg/3 ml Soln] 3 ml INHALATION RT-Q2H PRN #60 each PRN Reason: Shortness Of Breath Or Wheezing Acetaminophen Tab [Tylenol] 650 mg PO Q4HR PRN tab PRN Reason: Mild Pain Or Fever > 100.5 Continue Esomeprazole Magnesium [NexIUM 24Hr] 20 mg PO BID Aspirin [Adult Low Dose Aspirin EC] 81 mg PO HS Multivit-Min/FA/Lycopen/Lutein [Centrum Silver Tablet] 1 tab PO DAILY valACYclovir HCL [Valacyclovir] 500 mg PO BID PRN PRN Reason: outbreak Loperamide HCl [Loperamide] 2 mg PO Q4H PRN PRN Reason: Diarrhea Atorvastatin [Lipitor] 40 mg PO HS Ubidecarenone [Co Q-10] 300 mg PO DAILY Prochlorperazine [Compazine] 10 mg PO Q6H PRN PRN Reason: Nausea Sertraline [Zoloft] 50 mg PO DAILY Ondansetron [Zofran] 4 mg PO QID PRN PRN Reason: Nausea Lipase/Protease/Amylase [Kojo Tovar 6,000 Unit Capsule] 1 cap PO QID Diphenoxylate HCl/Atropine [Lomotil 2.5-0.025 mg Tablet] 1 tab PO QID PRN PRN Reason: Diarrhea Cholecalciferol (Vitamin D3) [Vitamin D3 (3000 Iu)] 75 mcg PO DAILY 5-Fu 1 dose IV DIRECTED Discharge Medication List Aspirin [Adult Low Dose Aspirin EC] 81 mg PO HS 10/13/16 [History] Esomeprazole Magnesium [NexIUM 24Hr] 20 mg PO BID 10/13/16 [History] Multivit-Min/FA/Lycopen/Lutein [Centrum Silver Tablet] 1 tab PO DAILY 10/13/16 [History] valACYclovir HCL [Valacyclovir] 500 mg PO BID PRN 11/07/19 [History] 5-Fu 1 dose IV DIRECTED 12/02/22 [History] Atorvastatin [Lipitor] 40 mg PO HS 12/02/22 [History] Cholecalciferol (Vitamin D3) [Vitamin D3 (3000 Iu)] 75 mcg PO DAILY 12/02/22 [History] Diphenoxylate HCl/Atropine [Lomotil 2.5-0.025 mg Tablet] 1 tab PO QID PRN 12/02/22 [History] Lipase/Protease/Amylase [Kojo Tovar 6,000 Unit Capsule] 1 cap PO QID 12/02/22 [History] Loperamide HCl [Loperamide] 2 mg PO Q4H PRN 12/02/22 [History] Ondansetron [Zofran] 4 mg PO QID PRN 12/02/22 [History] Prochlorperazine [Compazine] 10 mg PO Q6H PRN 12/02/22 [History] Sertraline [Zoloft] 50 mg PO DAILY 12/02/22 [History] Ubidecarenone [Co Q-10] 300 mg PO DAILY 12/02/22 [History] Acetaminophen Tab [Tylenol] 650 mg PO Q4HR PRN tab 12/03/22 [Rx] Ipratropium-Albuterol Nebulize [Duoneb 0.5 mg-3 mg/3 ml Soln] 3 ml INHALATION RT-Q2H PRN #60 each 12/03/22 [Rx] Ipratropium-Albuterol Nebulize [Duoneb 0.5 mg-3 mg/3 ml Soln] 3 ml INHALATION RT-QID #0 each 12/03/22 [Rx] methylPREDNISolone Dose Pack [Medrol Dose Pack] 4 mg PO DIRECTED #21 tab 12/03/22 [Rx] Follow up Appointment(s)/Referral(s): Sanya Rush MD [Primary Care Provider] - 12/09/22 3:15 pm Patient Instructions/Handouts: Prednisone (By mouth), Ipratropium/Albuterol (By breathing), Pulmonary Fibrosis (DC) Activity/Diet/Wound Care/Special Instructions: Activity Limited until follow-up Follow-up with primary care provider on discharge Follow-up with field sales specialist Continue Medrol Dosepak until finished Continue breathing treatments 3 times a day as needed Continue with Nexium and take twice daily until follow-up with pulmonary Discharge Disposition: HOME SELF-CARE
== END 2022-12-03 15:49 | disposition home or self-care (01) | DRG 189 ==
LOC: EC 04:25 → 5NMEDONC 07:51
PROVIDERS: ADMIT Hospitalist; ATTEND Hospitalist
DX: J96.01 Acute respiratory failure with hypoxia (principal); C25.9 Malignant neoplasm of pancreas, unspecified; J84.10 Pulmonary fibrosis, unspecified; I25.10 Atherosclerotic heart disease of native coronary artery without angina pectoris; E83.42 Hypomagnesemia; D63.0 Anemia in neoplastic disease; K21.9 Gastro-esophageal reflux disease without esophagitis; J98.01 Acute bronchospasm; M19.90 Unspecified osteoarthritis, unspecified site; Z20.822 Contact with and (suspected) exposure to COVID-19; Z92.21 Personal history of antineoplastic chemotherapy; Z92.3 Personal history of irradiation; Z90.710 Acquired absence of both cervix and uterus; Z85.42 Personal history of malignant neoplasm of other parts of uterus; Z85.828 Personal history of other malignant neoplasm of skin; Z95.5 Presence of coronary angioplasty implant and graft; Z87.19 Personal history of other diseases of the digestive system; Z80.3 Family history of malignant neoplasm of breast; Z79.899 Other long term (current) drug therapy; Z91.048 Other nonmedicinal substance allergy status; Z88.5 Allergy status to narcotic agent; Z88.0 Allergy status to penicillin; Z79.82 Long term (current) use of aspirin; Z85.43 Personal history of malignant neoplasm of ovary
CPT/HCPCS: 36415; 71046; 71275; 80048; 80053; 81003; 83735; 83880; 84484; 85025; 85610; 85730; 87636; 93005; 93306; 94640; 96365; 96366; 96375; 99285

== ENCOUNTER → 2023-02-13 | Outpatient (CLI) | payer MEDICARE ==
--- NOTE | 2023-02-13 08:57 | CT ---
EXAMINATION TYPE: CT sinus wo con DATE OF EXAM: 02/13/2023 COMPARISON: 05/02/2015 HISTORY: CHRONIC SINUSITIS CT DLP: 625 mGycm. Automated Exposure Control for Dose Reduction was Utilized. TECHNIQUE: CT scan of the sinuses is performed without contrast, axial images are obtained, coronal r eformatted images are also reviewed. FINDINGS: The paranasal sinuses including the frontal, ethmoid, sphenoid, and maxillary sinuses bila terally are well-aerated with a large mucous retention cyst or polyp in the left maxillary sinus with adjacent mucosal there is a moderate size michael bullosa on the right. The ostiomeatal complex is p atent bilaterally on the coronal images. Visualized portion of mastoid air cells show no abnormal opacification. The globes are intact bilate rally. Moderate generalized degenerative change. IMPRESSION: 1. Large mucous retention cyst or polyp within the left maxillary sinus and the ostiomeatal complex i s patent bilaterally. No other CT evidence of sinusitis
== END | disposition home or self-care (01) ==
LOC: RADCTMAIN 08:23
PROVIDERS: ATTEND Otolaryngology
DX: J32.9 Chronic sinusitis, unspecified (principal); J34.1 Cyst and mucocele of nose and nasal sinus
CPT/HCPCS: 70486